=== PATIENT | male | born 1985 | race Caucasian/White ===

== ENCOUNTER 2019-12-02 11:57 | Observation (INO) | payer OTHER ==
[2019-12-02] MEDS ORDERED: ONDANSETRON 4 MG/2 ML VIAL IVP STA (12:06)
[2019-12-02] MEDS ORDERED: SODIUM CHLORIDE 0.9% 1,000 ML IV STA ×2 (12:06)
[2019-12-02] MEDS ORDERED: MORPHINE SULFATE 4 MG/ML SYRINGE IV STA (12:06)
--- NOTE | 2019-12-02 12:11 | ED ---
Abdominal Pain HPI - General Chief Complaint: Abdominal Pain Stated Complaint: stomach pains Time Seen by Provider: 12/02/19 12:02 Source: patient Mode of arrival: ambulatory Limitations: no limitations - History of Present Illness Initial Comments: 34-year-old male with no past medical history presents to emergency department today for 1 hour of significant nausea and upper abdominal pain. Patient states he has right upper quadrant epigastric abdominal pain that began an hour ago he describes as sharp in nature states his profound nausea. Patient denies any chest pressure or shortness of breath. Patient denies any back pain arm pain and jaw pain. Patient denies any vomiting states he feels like he is about 2. Patient denies any diarrhea. Patient denies any sick contacts rashes or upper respiratory symptoms. Patient denies any known fevers. Patient denies any chronic alcohol abuse, or history of pancreatitis. Patient denies any radiation of the pain or specific alleviating or aggravating factors. Patient denies lower abdominal pain melena hematochezia. Remaining review of systems negative upon arrival patient appears nontoxic. VS within acceptable limits. - Related Data Home Medications Medication Instructions Recorded Confirmed No Known Home Medications 12/02/19 12/02/19 Allergies Allergy/AdvReac Type Severity Reaction Status Date / Time No Known Allergies Allergy Verified 12/02/19 14:24 Review of Systems ROS Statement: Those systems with pertinent positive or pertinent negative responses have been documented in the HPI. ROS Other: All systems not noted in ROS Statement are negative. Past Medical History Past Medical History: No Reported History History of Any Multi-Drug Resistant Organisms: None Reported Past Surgical History: No Surgical Hx Reported Past Psychological History: No Psychological Hx Reported Smoking Status: Never smoker Past Alcohol Use History: Occasional Past Drug Use History: None Reported General Exam - General Exam Comments Initial Comments: General: The patient is awake and alert, in no distress Eye: +3 mm pupils are equal, round and reactive to light, extra-ocular movements are intact. No nystagmus. There is normal conjunctiva bilaterally. No signs of icterus. Ears, nose, mouth and throat: There are moist mucous membranes and no oral lesions. Neck: The neck is supple, there is no tenderness or JVD. Cardiovascular: There is a regular rate and rhythm. No murmur, rub or gallop is appreciated. Respiratory: Lungs are clear to auscultation, respirations are non-labored, breath sounds are equal. No wheezes, stridor, rales, or rhonchi. Gastrointestinal: Soft, non-distended, RUQ and epigastric abdomen without masses or organomegaly noted. There is no rebound or guarding present. Musculoskeletal: Normal ROM, no tenderness. Strength 5/5. Sensation intact. Radial pulses equal bilaterally 2+. Rectal: no bright red blood, external hemorrhoid nonthrombosed pink, normal rectal tone, light brown stool Neurological: A&O x 3. CN II-XII intact grossly, There are no obvious motor or sensory deficits. Coordination appears grossly intact. Speech is normal. Skin: Skin is warm and dry and no rashes or lesions are noted. Psychiatric: Cooperative, appropriate mood & affect, normal judgment. Limitations: no limitations Course Vital Signs 12/02/19 12/02/19 12/02/19 11:59 14:40 14:58 Temperature 97.5 F L 97.9 F Pulse Rate 69 72 Respiratory 20 17 18 Rate Blood Pressure 110/68 111/76 O2 Sat by Pulse 100 100 Oximetry Medical Decision Making - Medical Decision Making 33 mL presented for epigastric pain and nausea. Patient has a low hemoglobin. Concern for peptic ulcer. Patient is occult positive. History of hemorrhoids with obvious external hemorrhoid. Does not appear thrombosed. Patient has no previous hemoglobin values. No known history of anemia. Patient's symptoms were controlled in the emergency Department patient is not tachycardic. At this time given the significance of anemia, patient will be admitted for GI consultation. Patient agreeable to admission, and was given protonix and IV fluids in the ER. Case was discussed with Dr. Diaz who spoke with the admitting provider Dr Gamez who accepted both agreeable to care plan. - Lab Data Result diagrams: 12/02/19 12:15 12/02/19 12:15 Lab Results 12/02/19 12/02/19 12/02/19 Range/Units 12:15 12:15 12:15 WBC 9.6 (3.8-10.6) k/uL RBC 5.97 H (4.30-5.90) m/uL Hgb 9.5 L (13.0-17.5) gm/dL Hct 38.6 L (39.0-53.0) % MCV 64.7 L (80.0-100.0) fL MCH 15.8 L (25.0-35.0) pg MCHC 24.5 L (31.0-37.0) g/dL RDW 16.4 H (11.5-15.5) % Plt Count 375 (150-450) k/uL Neutrophils % 80 % Lymphocytes % 12 % Monocytes % 4 % Eosinophils % 2 % Basophils % 0 % Neutrophils # 7.7 (1.3-7.7) k/uL Lymphocytes # 1.2 (1.0-4.8) k/uL Monocytes # 0.4 (0-1.0) k/uL Eosinophils # 0.1 (0-0.7) k/uL Basophils # 0.0 (0-0.2) k/uL Hypochromasia Marked Anisocytosis Slight Microcytosis Marked Sodium 138 (137-145) mmol/L Potassium 4.7 (3.5-5.1) mmol/L Chloride 104 (98-107) mmol/L Carbon Dioxide 25 (22-30) mmol/L Anion Gap 9 mmol/L BUN 12 (9-20) mg/dL Creatinine 0.80 (0.66-1.25) mg/dL Est GFR (CKD-EPI)AfAm >90 (>60 ml/min/1.73 sqM) Est GFR (CKD-EPI)NonAf >90 (>60 ml/min/1.73 sqM) Glucose 137 H (74-99) mg/dL Calcium 9.3 (8.4-10.2) mg/dL Total Bilirubin 0.3 (0.2-1.3) mg/dL AST 20 (17-59) U/L ALT 10 (4-49) U/L Alkaline Phosphatase 70 (38-126) U/L Troponin I <0.012 (0.000-0.034) ng/mL Total Protein 7.8 (6.3-8.2) g/dL Albumin 4.6 (3.5-5.0) g/dL Amylase 68 (30-110) U/L Lipase 52 (23-300) U/L Urine Color Urine Appearance (Clear) Urine pH (5.0-8.0) Ur Specific [place] (1.001-1.035) Urine Protein (Negative) Urine Glucose (UA) (Negative) Urine Ketones (Negative) Urine Blood (Negative) Urine Nitrite (Negative) Urine Bilirubin (Negative) Urine Urobilinogen (<2.0) mg/dL Ur Leukocyte Esterase (Negative) Urine RBC (0-5) /hpf Urine WBC (0-5) /hpf Ur Squamous Epith Cells (0-4) /hpf Hyaline Casts (0-2) /lpf Urine Mucus (None) /hpf Stool Occult Blood (Negative) 12/02/19 12/02/19 Range/Units 13:00 13:43 WBC (3.8-10.6) k/uL RBC (4.30-5.90) m/uL Hgb (13.0-17.5) gm/dL Hct (39.0-53.0) % MCV (80.0-100.0) fL MCH (25.0-35.0) pg MCHC (31.0-37.0) g/dL RDW (11.5-15.5) % Plt Count (150-450) k/uL Neutrophils % % Lymphocytes % % Monocytes % % Eosinophils % % Basophils % % Neutrophils # (1.3-7.7) k/uL Lymphocytes # (1.0-4.8) k/uL Monocytes # (0-1.0) k/uL Eosinophils # (0-0.7) k/uL Basophils # (0-0.2) k/uL Hypochromasia Anisocytosis Microcytosis Sodium (137-145) mmol/L Potassium (3.5-5.1) mmol/L Chloride (98-107) mmol/L Carbon Dioxide (22-30) mmol/L Anion Gap mmol/L BUN (9-20) mg/dL Creatinine (0.66-1.25) mg/dL Est GFR (CKD-EPI)AfAm (>60 ml/min/1.73 sqM) Est GFR (CKD-EPI)NonAf (>60 ml/min/1.73 sqM) Glucose (74-99) mg/dL Calcium (8.4-10.2) mg/dL Total Bilirubin (0.2-1.3) mg/dL AST (17-59) U/L ALT (4-49) U/L Alkaline Phosphatase (38-126) U/L Troponin I (0.000-0.034) ng/mL Total Protein (6.3-8.2) g/dL Albumin (3.5-5.0) g/dL Amylase (30-110) U/L Lipase (23-300) U/L Urine Color Yellow Urine Appearance Clear (Clear) Urine pH 5.5 (5.0-8.0) Ur Specific [place] 1.024 (1.001-1.035) Urine Protein 1+ H (Negative) Urine Glucose (UA) Negative (Negative) Urine Ketones Negative (Negative) Urine Blood Moderate H (Negative) Urine Nitrite Negative (Negative) Urine Bilirubin Negative (Negative) Urine Urobilinogen <2.0 (<2.0) mg/dL Ur Leukocyte Esterase Trace H (Negative) Urine RBC 5 (0-5) /hpf Urine WBC 7 H (0-5) /hpf Ur Squamous Epith Cells <1 (0-4) /hpf Hyaline Casts 1 (0-2) /lpf Urine Mucus Many H (None) /hpf Stool Occult Blood Positive (Negative) - EKG Data EKG Comments: Ventricular rate 58 bpm, ID interval 132 ms, QRS ration 92 ms, QT/QTC 440/431 ms. This is mild sinus bradycardia. There is no ST elevation or depression. There is normal R-wave progression. No acute findings at this time. Disposition Clinical Impression: Anemia, Occult blood positive stool, Abdominal pain, Nausea Disposition: ADMITTED IP TO THIS HOSP Condition: Stable Is patient prescribed a controlled substance at d/c from ED?: No Time of Disposition: 14:19 Decision to Admit Reason: Admit from EC Decision Date: 12/02/19 Decision Time: 14:19
[2019-12-02 12:48] LABS: ALT 10 U/L (4-49); AST 20 U/L (17-59); African American GFR (CKD) >90 (>60 ml/min/1.73 sqM); Albumin 4.6 g/dL (3.5-5.0); Alkaline Phosphatase 70 U/L (38-126); Amylase 68 U/L (30-110); Anion Gap 9 mmol/L; Blood Urea Nitrogen 12 mg/dL (9-20); Calcium 9.3 mg/dL (8.4-10.2); Carbon Dioxide 25 mmol/L (22-30); Chloride 104 mmol/L (98-107); Glucose 137 mg/dL (74-99); Non-African American GFR(CKD) >90 (>60 ml/min/1.73 sqM); Potassium 4.7 mmol/L (3.5-5.1); Sodium 138 mmol/L (137-145); Total Bilirubin 0.3 mg/dL (0.2-1.3); Total Protein 7.8 g/dL (6.3-8.2)
[2019-12-02 12:49] LABS: Anisocytosis Slight; Basophils % (A) 0 %; Eosinophils # (A) 0.1 k/uL (0-0.7); Eosinophils % (A) 2 %; HCT 38.6 % (39.0-53.0); HGB 9.5 gm/dL (13.0-17.5); Hypochromasia Marked; Lymphocytes # (A) 1.2 k/uL (1.0-4.8); Lymphocytes % (A) 12 %; MCH 15.8 pg (25.0-35.0); MCHC 24.5 g/dL (31.0-37.0); MCV 64.7 fL (80.0-100.0); Mean Platelet Volume 7.3; Microcytosis Marked; Monocytes # (A) 0.4 k/uL (0-1.0); Monocytes % (A) 4 %; Neutrophils # (A) 7.7 k/uL (1.3-7.7); Neutrophils % (A) 80 %; Platelet Count 375 k/uL (150-450); RBC 5.97 m/uL (4.30-5.90); RDW 16.4 % (11.5-15.5); WBC 9.6 k/uL (3.8-10.6)
--- NOTE | 2019-12-02 13:18 | XR ---
EXAMINATION TYPE: XR abdomen acute w cxr DATE OF EXAM: 12/02/2019 COMPARISON: NONE HISTORY: Pain TECHNIQUE: Single view of the chest and 2 views of the abdomen are submitted. FINDINGS: Single view of the chest fails demonstrate evidence for acute pulmonary disease. There is no evidence for pneumoperitoneum. The bowel gas pattern is unremarkable as there is air throughout nondilated small and large bowel. No sizeable air fluid levels.No mass effects are seen. No unusual calcifications. IMPRESSION: 1. Unremarkable study.
[2019-12-02 13:22] LABS: Appearance,Urine Clear (Clear); Bilirubin,Urine Negative (Negative); Blood,Urine Moderate (Negative); Color,Urine Yellow; Glucose,Urine (UA) Negative (Negative); Hyaline Casts,Urine 1 /lpf (0-2); Ketones,Urine Negative (Negative); Leukocyte Esterase,Urine Trace (Negative); Mucus,Urine Many /hpf; Nitrite,Urine Negative (Negative); PH, Urine 5.5 (5.0-8.0); Protein,Urine 1+ (Negative); RBC,Urine 5 /hpf (0-5); Specific Gravity,Urine 1.024 (1.001-1.035); Squamous Epithelial Cell,Urine <1 /hpf (0-4); Urobilinogen,Urine <2.0 mg/dL (<2.0); WBC,Urine 7 /hpf (0-5)
[2019-12-02] MEDS ORDERED: PANTOPRAZOLE 40 MG/10 ML VIAL IVP STA (14:04)
[2019-12-02] MEDS ORDERED: NALOXONE 0.4 MG/ML 1 ML VIAL IV PRN (14:17)
[2019-12-02] MEDS ORDERED: MORPHINE SULFATE 4 MG/ML SYRINGE IV PRN (14:17)
[2019-12-02] MEDS ORDERED: ONDANSETRON 4 MG/2 ML VIAL IVP PRN (14:17)
[2019-12-02] MEDS: SODIUM CHLORIDE 0.9% 1,000 ML IV SCH (14:37)
[2019-12-02 14:59] VITALS: RESP 18
--- NOTE | 2019-12-02 15:36 | P.HPIM ---
History of Present Illness 34-year-old pleasant male with no history of alcohol abuse came in with complains of epigastric and right upper quadrant abdominal pain sharp in nature moderate amount of pain with profound nausea did not vomit. Patient denied any chest pain or shortness of breath. Patient is admitted for because of severe anemia although patient denied any dark stools or blood in the stools. Patient's hemoglobin is 9.5 and MCV is only 64. Patient clinically doesn't have any acute GI bleed but does have microcytic anemia, uterine deficiency or thalassemia. Patient woke up from a abdominal pain and patient's abdominal pain is not related to food patient still has his gallbladder Review of Systems REVIEW OF SYSTEMS: CONSTITUTIONAL: No fever, no malaise, no fatigue. HEENT: No recent visual problems or hearing problems. Denied any sore throat. CARDIOVASCULAR: No chest pain, orthopnea, PND, no palpitations, no syncope. PULMONARY: No shortness of breath, no cough, no hemoptysis. GASTROINTESTINAL: As mentioned in HPI NEUROLOGICAL: No headaches, no weakness, no numbness. HEMATOLOGICAL: Denies any bleeding or petechiae. GENITOURINARY: Denies any burning micturition, frequency, or urgency. MUSCULOSKELETAL/RHEUMATOLOGICAL: Denies any joint pain, swelling, or any muscle pain. ENDOCRINE: Denies any polyuria or polydipsia. The rest of the 14-point review of systems is negative. Past Medical History Past Medical History: No Reported History History of Any Multi-Drug Resistant Organisms: None Reported Past Surgical History: No Surgical Hx Reported Past Psychological History: No Psychological Hx Reported Smoking Status: Never smoker Past Alcohol Use History: Occasional Past Drug Use History: None Reported Medications and Allergies Home Medications Medication Instructions Recorded Confirmed Type No Known Home Medications 12/02/19 12/02/19 History Allergies Allergy/AdvReac Type Severity Reaction Status Date / Time No Known Allergies Allergy Verified 12/02/19 14:24 Physical Exam Vitals: Vital Signs Temp Pulse Resp BP Pulse Ox 12/02/19 14:58 18 12/02/19 14:40 97.9 F 72 17 111/76 100 12/02/19 11:59 97.5 F L 69 20 110/68 100 Intake and Output 12/02/19 12/02/19 12/02/19 06:59 14:59 22:59 Other: Weight 72.575 kg PHYSICAL EXAMINATION: GENERAL: The patient is alert and oriented x3, not in any acute distress. Well developed, well nourished. HEENT: Pupils are round and equally reacting to light. EOMI. No scleral icterus. No conjunctival pallor. Normocephalic, atraumatic. No pharyngeal erythema. No thyromegaly. CARDIOVASCULAR: S1 and S2 present. No murmurs, rubs, or gallops. PULMONARY: Chest is clear to auscultation, no wheezing or crackles. ABDOMEN: Soft, nontender, nondistended, normoactive bowel sounds. No palpable organomegaly. MUSCULOSKELETAL: No joint swelling or deformity. EXTREMITIES: No cyanosis, clubbing, or pedal edema. NEUROLOGICAL: Gross neurological examination did not reveal any focal deficits. SKIN: No rashes. Results CBC & Chem 7: 12/02/19 12:15 12/02/19 12:15 Labs: Abnormal Lab Results - Last 24 Hours (Table) 12/02/19 12/02/19 12/02/19 Range/Units 12:15 12:15 13:00 RBC 5.97 H (4.30-5.90) m/uL Hgb 9.5 L (13.0-17.5) gm/dL Hct 38.6 L (39.0-53.0) % MCV 64.7 L (80.0-100.0) fL MCH 15.8 L (25.0-35.0) pg MCHC 24.5 L (31.0-37.0) g/dL RDW 16.4 H (11.5-15.5) % Glucose 137 H (74-99) mg/dL Urine Protein 1+ H (Negative) Urine Blood Moderate H (Negative) Ur Leukocyte Esterase Trace H (Negative) Urine WBC 7 H (0-5) /hpf Urine Mucus Many H (None) /hpf Assessment and Plan Plan: -Epigastric abdominal pain nausea vomiting: Secondary to peptic ulcer disease patient will be started on Protonix continue with IV fluids -rule out gallbladder disease although clinical suspicion is low Galeano's sign is negative. -Severe microcytic anemia patient MCVs as low as 64 although I do not believe patient has acute GI bleed aren't acutely acute blood loss anemia patient does have iron deficiency can be from nutritional deficiency of iron I'll do an iron panel are thalassemia the possibility of thalassemia is low. Hemoglobin electrophoresis was ordered as well.
--- NOTE | 2019-12-02 16:21 | US ---
EXAMINATION TYPE: US gallbladder DATE OF EXAM: 12/02/2019 COMPARISON: NONE CLINICAL HISTORY: elevated liver enzymes. Elevated LFT's, pt states right side ABD pain EXAM MEASUREMENTS: Liver Length: 16.2 cm Gallbladder Wall: 0.2 cm CBD: 0.3 cm Right Kidney: 11.3 x 4.5 x 5.1 cm Pancreas: wnl, tail obscured by overlying bowel gas Liver: wnl Gallbladder: wnl Evidence for sonographic Galeano's sign: No CBD: wnl Right Kidney: wnl IMPRESSION: No distinct abnormality appreciated.
[2019-12-02 23:29] LABS: % Iron Saturation 1.41 (15.00-50.00)
[2019-12-03] MEDS: SODIUM CHLORIDE 0.9% 1,000 ML IV SCH (04:11)
[2019-12-03] MEDS ORDERED: PANTOPRAZOLE 40 MG/10 ML VIAL IV SCH (09:00)
[2019-12-03 09:10] LABS: African American GFR (CKD) >90 (>60 ml/min/1.73 sqM); Anion Gap 4 mmol/L; Blood Urea Nitrogen 12 mg/dL (9-20); Calcium 8.7 mg/dL (8.4-10.2); Carbon Dioxide 27 mmol/L (22-30); Chloride 106 mmol/L (98-107); Glucose 91 mg/dL (74-99); Non-African American GFR(CKD) >90 (>60 ml/min/1.73 sqM); Potassium 4.7 mmol/L (3.5-5.1); Sodium 137 mmol/L (137-145)
[2019-12-03 10:12] LABS: Anisocytosis Slight; Basophils % (A) 1 %; Eosinophils # (A) 0.2 k/uL (0-0.7); Eosinophils % (A) 3 %; HCT 33.1 % (39.0-53.0); HGB 8.1 gm/dL (13.0-17.5); Hypochromasia Marked; Lymphocytes # (A) 1.8 k/uL (1.0-4.8); Lymphocytes % (A) 29 %; MCH 16.1 pg (25.0-35.0); MCHC 24.5 g/dL (31.0-37.0); MCV 65.9 fL (80.0-100.0); Mean Platelet Volume 9.7; Microcytosis Marked; Monocytes # (A) 0.5 k/uL (0-1.0); Monocytes % (A) 8 %; Neutrophils # (A) 3.6 k/uL (1.3-7.7); Neutrophils % (A) 57 %; Platelet Count 312 k/uL (150-450); RBC 5.02 m/uL (4.30-5.90); RDW 16.3 % (11.5-15.5); WBC 6.3 k/uL (3.8-10.6)
[2019-12-03 10:21] LABS: Reticulocyte % 0.84 % (0.10-1.80)
[2019-12-03 10:44] LABS: Folate, Serum 9.4 ng/mL
[2019-12-03 10:50] LABS: Ferritin 1.7 ng/mL (22.0-322.0)
[2019-12-03] MEDS ORDERED: SODIUM FERRIC GLUCONAT-SUCROSE 125 MG in SODIUM CHLORIDE 0.9% 100 ML IVPB SCH (11:00)
[2019-12-03 11:30] VITALS: BP 99/64; PULSE 68; TEMP 98.2
--- NOTE | 2019-12-03 13:44 | P.DS ---
Providers Date of admission: 12/02/19 14:14 Expected date of discharge: 12/03/19 Attending physician: Osiel Cummins Consults: 12/02/19 14:20 Consult Physician Routine Consulting Provider: Domo Tee Consult Reason/Comments: Anemia, epigastric pain, occult positive Do you want consulting provider notified?: Yes, Notify in am [facility] Course: Final diagnosis -Epigastric abdominal pain nausea vomiting: Secondary to peptic ulcer disease -ruled out gallbladder disease -Severe microcytic anemia -Iron deficiency anemia with no thalassemia and no evidence of GI bleed Discharge disposition Patient is being discharged in a stable condition with guarded prognosis to home and patient will follow-up with Dr. Delacruz in the outpatient setting. Patient will need to follow-up outpatient with hematology as well as GI. Patient will continue with Protonix and iron supplementation in the outpatient setting. Total time taken is 35 minutes. History of present illness This is a 34-year-old male who was recently admitted with epigastric and right upper quadrant abdominal pain with profound nausea and was being closely monitored. There was a possibility of GI bleed as the occult was positive although there is no active bleeding noted. Patient's hemoglobin today is 8.1 with no reports of bleeding noted. Patient was seen and evaluated by GI recommending Protonix daily and iron supplementation as his iron ferritin is low at 1.7. Patient will need repeat labs to monitor hemoglobin and will be following up with hematology in the outpatient setting. Currently no reports of chest pain, shortness of breath, or palpitations. Patient is afebrile. No reports of nausea or vomiting and patient is tolerating diet. Patient will be discharged home today and will follow-up with GI and hematology along with his primary care provider in the outpatient setting. Patient Instructed to avoid all alcohol intake. On exam vital signs are stable. Temp is 98.2F, pulse is 68, respirations are 18, blood pressure is 99/64, oxygen saturation is 100 % on room air. Cardio S1, S2 are present. Respiratory system shows clear to auscultation. Abdomen is soft and nontender. Nervous system shows no focal deficits. Please refer to medication reconciliation sheet for a list of medications. Patient Condition at Discharge: Stable Plan - Discharge Summary Discharge Rx Participant: No New Discharge Prescriptions: New Pantoprazole Sodium [Protonix] 40 mg PO AC-BRKFST #30 tablet. Ferrous Gluconate 324 mg PO DAILY 30 Days #30 tablet Discharge Medication List Ferrous Gluconate 324 mg PO DAILY 30 Days #30 tablet 12/03/19 [Rx] Pantoprazole Sodium [Protonix] 40 mg PO AC-BRKFST #30 tablet. 12/03/19 [Rx] Follow up Appointment(s)/Referral(s): Bob Tobar MD [STAFF PHYSICIAN] - 2 Weeks Jillian Delacruz MD [Primary Care Provider] - 1-2 days Domo Tee MD [STAFF PHYSICIAN] - 4 Weeks Ambulatory/Diagnostic Orders: Complete Blood Count w/diff [LAB.AMB] Time Frame: 2 Days, Location: None Selected Activity/Diet/Wound Care/Special Instructions: Activity Limited until follow-up Follow-up with primary care provider upon discharge Continue current diet Continue with iron supplements Follow-up GI in the outpatient setting Follow-up with hematology in the outpatient setting Repeat labs in 2-3 days Discharge Disposition: HOME SELF-CARE
--- NOTE | 2019-12-03 23:18 | P.CONS ---
History of Present Illness - Reason for Consult Consult date: 12/03/19 Iron deficiency anemia, abdominal pain Requesting physician: Shelley Frank - Chief Complaint Abdominal pain - History of Present Illness 34-year-old male with no significant medical history of presents to the hospital with abdominal pain. Patient reports right upper quadrant abdominal pain described as sharp in nature without radiation. Denies any exacerbating tri ggers but does report relief with pain medications after coming to the hospital. He did have associated nausea and vomiting but denies any diarrhea. He denies any constipation, altered bowel function, blood per rectum, melena at this time. No GERD, or regurgitation reported. He denies any significant NSAID use. Denies any history of anemia or other signs or symptoms of bleeding. No prior endoscopic history. Patient had ultrasound and x-ray of the abdomen on presentation which were unremarkable. Laboratory evaluation was significant for microcytic anemia with hemoglobin of 9.5, EGD 64, MCHC 15.8, WBC 9.6, platelet count irregular 75,000 with iron studies significant for iron deficiency. No prior history of anemia for the patient. Review of Systems REVIEW OF SYSTEMS: CONSTITUTIONAL: Denies any fevers, chills, weight change or fatigue. CARDIOVASCULAR: Denies any chest pain, palpitations high or low blood pressures RESPIRATORY: Denies any shortness of breath, hemoptysis or cough. GENITOURINARY: No dysuria or hematuria. MUSCULOSKELETAL: No weakness reported. SKIN: Denies any new rashes or lesions, jaundice or pallor. PSYCHIATRIC: Denies any depression or anxiety. NEUROLOGY: Denies headache, denies any new focal deficits. EARS/NOSE/THROAT: No recent hearing change, congestion, nasal discharge or sore throat. EYES: No pain in eyes, discharge or change in vision. GASTROINTESTINAL: As per HPI. Past Medical History Past Medical History: No Reported History History of Any Multi-Drug Resistant Organisms: None Reported Past Surgical History: No Surgical Hx Reported Past Anesthesia/Blood Transfusion Reactions: Unable to Obtain Additional Past Anesthesia/Blood Transfusion Reaction / Comm: Pt has never had anesthesia Smoking Status: Former smoker - Past Family History Father Family Medical History: Diabetes Mellitus Mother Family Medical History: No Reported History Additional Family Medical History / Comment(s): Mother is healthy Medications and Allergies Home Medications Medication Instructions Recorded Confirmed Type Ferrous Gluconate 324 mg PO DAILY 30 Days #30 tablet 12/03/19 Rx Pantoprazole Sodium [Protonix] 40 mg PO TOBYBRKFST #30 tablet. 12/03/19 Rx Allergies Allergy/AdvReac Type Severity Reaction Status Date / Time No Known Allergies Allergy Verified 12/02/19 14:24 Physical Exam Vitals: Vital Signs Temp Pulse Pulse Resp BP BP Pulse Ox 12/03/19 07:39 69 18 12/03/19 05:00 97.9 F 69 18 98/63 98 12/02/19 20:24 97.7 F 79 18 92/52 99 12/02/19 16:41 98.3 F 69 18 112/69 100 12/02/19 14:58 18 12/02/19 14:40 97.9 F 72 17 111/76 100 12/02/19 11:59 97.5 F L 69 20 110/68 100 Intake and Output 12/02/19 12/03/19 12/03/19 22:59 06:59 14:59 Intake Total 120 900 Balance 120 900 Intake: Intake, IV Titration 900 Amount Sodium Chloride 0.9% 1, 900 000 ml @ 75 mls/hr IV . [id number] [facility] Rx#:[id number] Oral 120 Other: Voiding Method Toilet Toilet # Voids 1 1 1 Weight 72.575 kg On physical examination, patient appears comfortable in no apparent distress. HEAD: Normocephalic, atraumatic. EYES: No scleral icterus. No conjunctival injection. MOUTH: No lesions, tongue midline. NECK: Trachea midline, no gross abnormalities. CHEST: Clear to auscultation with no wheezing or rhonchi appreciated. HEART: Regular rate and rhythm. ABDOMEN: Soft, obese. Bowel sounds are positive. No organomegaly. No guarding or rigidity. EXTREMITIES: No pedal edema. SKIN: No rashes, no jaundice. NEUROLOGIC: Alert and oriented x3. No focal deficits. Results CBC & Chem 7: 12/03/19 07:24 12/03/19 07:24 Labs: Abnormal Lab Results - Last 24 Hours (Table) 12/02/19 12/02/19 12/02/19 Range/Units 12:15 12:15 12:15 RBC 5.97 H (4.30-5.90) m/uL Hgb 9.5 L (13.0-17.5) gm/dL Hct 38.6 L (39.0-53.0) % MCV 64.7 L (80.0-100.0) fL MCH 15.8 L (25.0-35.0) pg MCHC 24.5 L (31.0-37.0) g/dL RDW 16.4 H (11.5-15.5) % Hemoglobin A1 (96.5-97.8) % Hemoglobin A2 (2.2-3.2) % Glucose 137 H (74-99) mg/dL Iron 7 L (65-175) ug/dL TIBC 497 H (228-460) ug/dL % Saturation 1.41 L (15.00-50.00) Urine Protein (Negative) Urine Blood (Negative) Ur Leukocyte Esterase (Negative) Urine WBC (0-5) /hpf Urine Mucus (None) /hpf 12/02/19 12/02/19 12/03/19 Range/Units 12:15 13:00 07:24 RBC (4.30-5.90) m/uL Hgb 8.1 L (13.0-17.5) gm/dL Hct 33.1 L (39.0-53.0) % MCV 65.9 L (80.0-100.0) fL MCH 16.1 L (25.0-35.0) pg MCHC 24.5 L (31.0-37.0) g/dL RDW 16.3 H (11.5-15.5) % Hemoglobin A1 98.3 H (96.5-97.8) % Hemoglobin A2 1.7 L (2.2-3.2) % Glucose (74-99) mg/dL Iron (65-175) ug/dL TIBC (228-460) ug/dL % Saturation (15.00-50.00) Urine Protein 1+ H (Negative) Urine Blood Moderate H (Negative) Ur Leukocyte Esterase Trace H (Negative) Urine WBC 7 H (0-5) /hpf Urine Mucus Many H (None) /hpf US - abdomen: report reviewed (Unremarkable ultrasound of the liver) Assessment and Plan (1) Iron deficiency anemia Narrative/Plan: 34-year-old male with no significant medical history found to have an iron deficiency anemia with of 9.5 on presentation with microcytic indices and with iron studies consistent with deficiency. Unclear etiology. Denies any signs or symptoms of bleeding. No prior history of anemia. No endoscopic history. No change in bowels, hematochezia or melena. Unclear if bleeding is secondary to occult GI bleed, nutritional deficiencies, hematopoietic or other etiology. Status: Acute Code(s): D50.9 - IRON DEFICIENCY ANEMIA, UNSPECIFIED SNOMED Code(s): 57952049 (2) Abdominal pain Status: Acute Code(s): R10.9 - UNSPECIFIED ABDOMINAL PAIN SNOMED Code(s): 93630011 Plan: Supportive care Okay for diet Protonix 40 mg daily Iron supplementation Patient should continue to have hemoglobin monitored in the outpatient setting, if he remains anemic would recommend at this evaluation for further elucidation of possible etiology and to rule out GI bleed No plans for endoscopic evaluation at this time Follow-up with yesterday serology in 3-4 weeks for reassessment of hemoglobin Follow-up with primary care physician after discharge Thank you for allowing us to participate in the care of the patient
== END 2019-12-03 15:12 | disposition home or self-care (01) ==
LOC: EC 11:57 → 5NMEDONC 14:14
PROVIDERS: ADMIT Internal Medicine; ATTEND Internal Medicine
DX: K27.9 Peptic ulcer, site unspecified, unspecified as acute or chronic, without hemorrhage or perforation (principal); D50.9 Iron deficiency anemia, unspecified; R19.5 Other fecal abnormalities; K64.4 Residual hemorrhoidal skin tags; Z87.891 Personal history of nicotine dependence
CPT/HCPCS: 96376; 96361; 96374; 96375; 99285; 36415; 93005; 80053; 80048; 82607; 82728; 82150; 82746; 83021; 83540; 83550; 83690; 84484; 85025 ×2; 85045; 82272; 81001; 74022; 76705; G0378 ×2; J2270; J2405; C9113 ×2

== ENCOUNTER 2022-08-15 18:20 | Inpatient (IN) | payer OTHER ==
[2022-08-15] MEDS ORDERED: PANTOPRAZOLE 40 MG/10 ML VIAL IVP STA (18:38)
[2022-08-15] MEDS ORDERED: SODIUM CHLORIDE 0.9% 1,000 ML IV STA (18:38)
[2022-08-15 19:19] LABS: ALT 14 U/L (4-49); AST 22 U/L (17-59); African American GFR (CKD) >90 (>60 ml/min/1.73 sqM); Albumin 5.2 g/dL (3.5-5.0); Alkaline Phosphatase 85 U/L (38-126); Anion Gap 11 mmol/L; Blood Urea Nitrogen 13 mg/dL (9-20); Calcium 9.7 mg/dL (8.4-10.2); Carbon Dioxide 25 mmol/L (22-30); Chloride 102 mmol/L (98-107); Glucose 128 mg/dL (74-99); Lipase 84 U/L (23-300); Non-African American GFR(CKD) 86 (>60 ml/min/1.73 sqM); Sodium 138 mmol/L (137-145); Total Bilirubin 0.4 mg/dL (0.2-1.3); Total Protein 8.2 g/dL (6.3-8.2)
[2022-08-15 19:24] LABS: Anisocytosis Slight; Basophils # (A) 0.1 k/uL (0-0.2); Basophils % (A) 1 %; Eosinophils # (A) 0.1 k/uL (0-0.7); Eosinophils % (A) 1 %; HCT 37.8 % (39.0-53.0); HGB 9.7 gm/dL (13.0-17.5); Hypochromasia Marked; Lymphocytes # (A) 1.9 k/uL (1.0-4.8); Lymphocytes % (A) 17 %; MCH 16.9 pg (25.0-35.0); MCHC 25.7 g/dL (31.0-37.0); MCV 65.5 fL (80.0-100.0); Microcytosis Marked; Monocytes # (A) 0.7 k/uL (0-1.0); Monocytes % (A) 6 %; Neutrophils # (A) 8.4 k/uL (1.3-7.7); Neutrophils % (A) 74 %; Platelet Count 380 k/uL (150-450); RBC 5.78 m/uL (4.30-5.90); RDW 16.2 % (11.5-15.5); WBC 11.4 k/uL (3.8-10.6)
[2022-08-15 19:46] LABS: Partial Thromboplastin Time 20.5 sec (22.0-30.0); Prothrombin Time 10.7 sec (9.0-12.0)
--- NOTE | 2022-08-15 20:26 | ED ---
General Adult HPI - General Chief complaint: Syncope Stated complaint: Weakness,Syncope Time Seen by Provider: 08/15/22 18:27 Source: patient Mode of arrival: wheelchair Limitations: no limitations - History of Present Illness Initial comments: 37-year-old male with past medical history of anemia who presents to the emergency department with presyncope. He reports that he has felt fatigued over the past couple of days. He took an iron tablet this morning due to the fatigue. He was at home when he had sudden onset of right upper quadrant abdominal pain. This made him double over. He felt like he was passed out. [place] extremely diaphoretic and nauseated. His father drove him up to the emergency department where he was found to be significantly hypotensive. He states he has had some bright red blood per rectum due to his hemorrhoid. Denie s any dark or bloody stools. Does not take any blood thinners. His pain or shortness of breath. No family history of cardiac disease. Supposed to take iron daily however has not taken the medication was. He was hospitalized 2 years ago for anemia which was attributed to iron deficiency and peptic ulcer. He states he was drinking significantly at that time and has subsequently cut down to once per week. He did not have endoscopy and has not followed up. No fevers. Denies cough. No other alleviating, precipitating or modifying factors - Related Data Home Medications Medication Instructions Recorded Confirmed No Known Home Medications 08/15/22 08/15/22 Allergies Allergy/AdvReac Type Severity Reaction Status Date / Time No Known Allergies Allergy Verified 08/15/22 20:42 Review of Systems ROS Statement: Those systems with pertinent positive or pertinent negative responses have been documented in the HPI. ROS Other: All systems not noted in ROS Statement are negative. Past Medical History Past Medical History: No Reported History History of Any Multi-Drug Resistant Organisms: None Reported Past Surgical History: No Surgical Hx Reported Past Anesthesia/Blood Transfusion Reactions: Unable to Obtain Additional Past Anesthesia/Blood Transfusion Reaction / Comment(s): Pt has never had anesthesia Past Psychological History: No Psychological Hx Reported Past Alcohol Use History: Occasional Past Drug Use History: None Reported - Past Family History Father Family Medical History: Diabetes Mellitus Mother Family Medical History: No Reported History Additional Family Medical History / Comment(s): Mother is healthy General Exam Limitations: no limitations Course Vital Signs 08/15/22 08/15/22 18:23 22:05 Temperature 97 F L Pulse Rate 102 H 92 Respiratory 16 15 Rate Blood Pressure 75/46 104/73 O2 Sat by Pulse 100 100 Oximetry EKG Findings - EKG Comments: EKG Findings:: EKG interpreted by myself demonstrates a sinus rhythm with a rate of 90. MT of 140. QRS 90. QTC 398. No acute ST segment elevations or depressions Procedures - [place] Protocol (Time Out) Nurse: Orville Villa Medical Decision Making - Medical Decision Making Upon arrival the patient was promptly placed in a trauma 1. A thorough history and physical exam was performed. Patient is markedly hypotensive. Two 18-gauge IVs are established and the patient is given a 2 L bolus of normal saline. I will try studies are conducted. Hemoglobin is 9.7. Lactic 2.3. Lipase 84. I did perform a rectal exam which demonstrates a external hemorrhoid with no signs of bleeding. I did obtain a small amount of stool which is placed on an occult and is negative. EKG is obtained. Patient sent for CT of his abdomen and pelvis which does not demonstrate cause for abdominal pain. Patient reevaluated and blood pressure has improved. Results are discussed with the patient. Did recommend observation overnight for his anemia and presyncope. Spoke with Dr. Goss who is agreeable to admit the patient - Lab Data Result diagrams: 08/15/22 18:51 08/15/22 18:51 Lab Results 08/15/22 08/15/22 08/15/22 Range/Units 18:30 18:35 18:51 WBC 11.4 H (3.8-10.6) k/uL RBC 5.78 (4.30-5.90) m/uL Hgb 9.7 L (13.0-17.5) gm/dL Hct 37.8 L (39.0-53.0) % MCV 65.5 L (80.0-100.0) fL MCH 16.9 L (25.0-35.0) pg MCHC 25.7 L (31.0-37.0) g/dL RDW 16.2 H (11.5-15.5) % Plt Count 380 (150-450) k/uL MPV 8.0 Neutrophils % 74 % Lymphocytes % 17 % Monocytes % 6 % Eosinophils % 1 % Basophils % 1 % Neutrophils # 8.4 H (1.3-7.7) k/uL Lymphocytes # 1.9 (1.0-4.8) k/uL Monocytes # 0.7 (0-1.0) k/uL Eosinophils # 0.1 (0-0.7) k/uL Basophils # 0.1 (0-0.2) k/uL Hypochromasia Marked Anisocytosis Slight Microcytosis Marked PT (9.0-12.0) sec INR (<1.2) APTT (22.0-30.0) sec Sodium (137-145) mmol/L Potassium (3.5-5.1) mmol/L Chloride (98-107) mmol/L Carbon Dioxide (22-30) mmol/L Anion Gap mmol/L BUN (9-20) mg/dL Creatinine (0.66-1.25) mg/dL Est GFR (CKD-EPI)AfAm (>60 ml/min/1.73 sqM) Est GFR (CKD-EPI)NonAf (>60 ml/min/1.73 sqM) Glucose (74-99) mg/dL Lactic Ac Sepsis Rflx Plasma Lactic Acid Elías (0.7-2.0) mmol/L Calcium (8.4-10.2) mg/dL Magnesium (1.6-2.3) mg/dL Total Bilirubin (0.2-1.3) mg/dL AST (17-59) U/L ALT (4-49) U/L Alkaline Phosphatase (38-126) U/L Troponin I (0.000-0.034) ng/mL Total Protein (6.3-8.2) g/dL Albumin (3.5-5.0) g/dL Lipase (23-300) U/L Stool Occult Blood (Negative) Blood Type O Positive Blood Type Confirm O Positive Blood Type Recheck No Previous Record Bld Type Recheck Status CABO Indicated Antibody Screen NEGATIVE Spec Expiration Date 08/18/2022 - 232908/15/22 08/15/22 08/15/22 Range/Units 18:51 18:51 18:51 WBC (3.8-10.6) k/uL RBC (4.30-5.90) m/uL Hgb (13.0-17.5) gm/dL Hct (39.0-53.0) % MCV (80.0-100.0) fL MCH (25.0-35.0) pg MCHC (31.0-37.0) g/dL RDW (11.5-15.5) % Plt Count (150-450) k/uL MPV Neutrophils % % Lymphocytes % % Monocytes % % Eosinophils % % Basophils % % Neutrophils # (1.3-7.7) k/uL Lymphocytes # (1.0-4.8) k/uL Monocytes # (0-1.0) k/uL Eosinophils # (0-0.7) k/uL Basophils # (0-0.2) k/uL Hypochromasia Anisocytosis Microcytosis PT 10.7 (9.0-12.0) sec INR 1.0 (<1.2) APTT 20.5 L (22.0-30.0) sec Sodium 138 (137-145) mmol/L Potassium 4.0 (3.5-5.1) mmol/L Chloride 102 (98-107) mmol/L Carbon Dioxide 25 (22-30) mmol/L Anion Gap 11 mmol/L BUN 13 (9-20) mg/dL Creatinine 1.10 (0.66-1.25) mg/dL Est GFR (CKD-EPI)AfAm >90 (>60 ml/min/1.73 sqM) Est GFR (CKD-EPI)NonAf 86 (>60 ml/min/1.73 sqM) Glucose 128 H (74-99) mg/dL Lactic Ac Sepsis Rflx Plasma Lactic Acid Elías 2.3 H* (0.7-2.0) mmol/L Calcium 9.7 (8.4-10.2) mg/dL Magnesium 2.0 (1.6-2.3) mg/dL Total Bilirubin 0.4 (0.2-1.3) mg/dL AST 22 (17-59) U/L ALT 14 (4-49) U/L Alkaline Phosphatase 85 (38-126) U/L Troponin I (0.000-0.034) ng/mL Total Protein 8.2 (6.3-8.2) g/dL Albumin 5.2 H (3.5-5.0) g/dL Lipase 84 (23-300) U/L Stool Occult Blood (Negative) Blood Type Blood Type Confirm Blood Type Recheck Bld Type Recheck Status Antibody Screen Spec Expiration Date 08/15/22 08/15/22 08/15/22 Range/Units 18:51 19:13 21:00 WBC (3.8-10.6) k/uL RBC (4.30-5.90) m/uL Hgb (13.0-17.5) gm/dL Hct (39.0-53.0) % MCV (80.0-100.0) fL MCH (25.0-35.0) pg MCHC (31.0-37.0) g/dL RDW (11.5-15.5) % Plt Count (150-450) k/uL MPV Neutrophils % % Lymphocytes % % Monocytes % % Eosinophils % % Basophils % % Neutrophils # (1.3-7.7) k/uL Lymphocytes # (1.0-4.8) k/uL Monocytes # (0-1.0) k/uL Eosinophils # (0-0.7) k/uL Basophils # (0-0.2) k/uL Hypochromasia Anisocytosis Microcytosis PT (9.0-12.0) sec INR (<1.2) APTT (22.0-30.0) sec Sodium (137-145) mmol/L Potassium (3.5-5.1) mmol/L Chloride (98-107) mmol/L Carbon Dioxide (22-30) mmol/L Anion Gap mmol/L BUN (9-20) mg/dL Creatinine (0.66-1.25) mg/dL Est GFR (CKD-EPI)AfAm (>60 ml/min/1.73 sqM) Est GFR (CKD-EPI)NonAf (>60 ml/min/1.73 sqM) Glucose (74-99) mg/dL Lactic Ac Sepsis Rflx Y Plasma Lactic Acid Elías (0.7-2.0) mmol/L Calcium (8.4-10.2) mg/dL Magnesium (1.6-2.3) mg/dL Total Bilirubin (0.2-1.3) mg/dL AST (17-59) U/L ALT (4-49) U/L Alkaline Phosphatase (38-126) U/L Troponin I <0.012 (0.000-0.034) ng/mL Total Protein (6.3-8.2) g/dL Albumin (3.5-5.0) g/dL Lipase (23-300) U/L Stool Occult Blood Negative (Negative) Blood Type Blood Type Confirm Blood Type Recheck Bld Type Recheck Status Antibody Screen Spec Expiration Date Disposition Clinical Impression: Anemia, Pre-syncope Disposition: ADMITTED IP TO THIS [facility] Condition: Stable Is patient prescribed a controlled substance at d/c from ED?: No Time of Disposition: 21:47 Decision to Admit Reason: Admit from EC Decision Date: 08/15/22 Decision Time: 21:47
--- NOTE | 2022-08-15 20:49 | CT ---
EXAMINATION TYPE: CT abdomen pelvis w con DATE OF EXAM: 08/15/2022 COMPARISON: None HISTORY: abominal pain and weakness CT DLP: 720.8 mGycm Automated exposure control for dose reduction was used. CONTRAST: Performed with IV Contrast, patient injected with 100 mL of Isovue 300. The lung bases are clear. No pleural effusion. Heart size is normal. Liver spleen stomach pancreas an d gallbladder appear intact. The bile ducts are not dilated. There is no adrenal mass. Kidneys show satisfactory contrast opacification. There is no hydronephrosi s. There is 1 cm focal cyst posterior right kidney. No retroperitoneal adenopathy. Appendix is partia lly seen and appears normal. Ureters are not dilated. Bladder distends smoothly. No inguinal hernia. There is mild prostate calcification. No free fluid in the pelvis. No pelvic mass. There is no mesenteric edema. No ascites or free air. No sign of a bowel obstruction. The lumbar vert ebra appear intact. No compression fracture. Bony pelvis is intact. The hip joints are intact. IMPRESSION: Negative CT scan abdomen and pelvis. I do not see a cause for abdominal pain.
[2022-08-15] MEDS ORDERED: NALOXONE 0.4 MG/ML 1 ML VIAL IV PRN (21:47)
[2022-08-16] MEDS: SODIUM CHLORIDE 0.9% 1,000 ML IV SCH ×4 (00:26→20:56)
--- NOTE | 2022-08-16 01:56 | P.HPIM ---
History of Present Illness H&P Date: 08/15/22 The patient is a 37-year-old male with a PMH of microcytic anemia and hemorrhoids who presented to the emergency room with complaints of near syncope. The patient reports that over the past 3-4 days, he has been experiencing gradually worsening fatigue. He also reports noticing bright red blood in the toilet bowl with each defecation. He reports that this is worse than the usual bleeding from his hemorrhoids. He reports that due to the worsening fatigue he decided to take a previously prescribed iron tablet this morning and was going about his day when he suddenly developed epigastric and right upper quadrant abdominal discomfort, 8 out of 10 associated with lightheadedness, nausea, and diaphoresis. He reports that the abdominal pain gradually subsided and had not recurred in the emergency room. He reports drinking alcohol for 1 day per week, multiple drinks, although he does not consider himself a heavy drinker. Of note, the patient was previously admitted to the hospital in 11/2019 for complaints of GI bleeding. At that time, the patient did not undergo an EGD, with the bleeding attributed to suspected peptic ulcer disease and patient being advised to follow-up as an outpatient, which the patient failed to do so. The patient denied experiencing chest discomfort, shortness of breath, palpitations. Upon arrival at the emergency room, the patient's patient was hypertensive with BP 75/46, pulse 102, SpO2 100% on room air, and temperature 97F. A CT abdomen and pelvis was unremarkable with EKG showing sinus rhythm at [address]/T-wave changes noted as reviewed by me. Laboratory evaluation was remarkable for hemoglobin of 9.7, up from 8.1 in 11/2019. MCV was 65.5 with lactic acid 2.3. Of note, the patient did undergo hemoglobin electrophoresis during the visit in 2019 which revealed 98.3% hemoglobin A1. Anemia pannel revealed severe iron deficiency with Ferritin 1.7. Review of systems: Pertinent positives and negatives as discussed in HPI, a complete review of systems was performed and all other systems are negative. Physical examination: General: non toxic, no distress, appears at stated age, normal weight Derm: no unusual rashes/lesions, warm Head: atraumatic, normocephalic, symmetric Eyes: EOMI, no lid lag, anicteric sclera, pupils equal round reactive to light ENT: Nose and ears atraumatic Neck: No cervical lymphadenopathy, trachea midline, supple Mouth: no lip lesion, mucus membranes moist Cardiovascular: S1S2 reg, no murmur, positive dorsalis pedis pulse bilateral, no edema Lungs: CTA bilateral, no rhonchi, no rales, no accessory muscle use Abdominal: soft, nontender to palpation, no guarding Ext: muscle strength 5 out of 5 in all 4 extremities grossly, no gross muscle atrophy, no contractures, Neuro: CN II-XI grossly intact, no gross focal neuro deficits Psych: Alert, oriented, appropriate affect Assessment/plan Near syncope with microcytic anemia and hypotension -Suspicious for likely GI bleed -Fecal occult however in the emergency room unremarkable -General surgery consult for possible EGD/colonoscopy -Continue with Protonix -Monitor CBC -IV fluids -Cardiac monitoring -Fall precautions DVT prophylaxis -IPCDs The patient is admitted with an anticipated less than 2 midnight stay for evaluation of microcytic anemia CODE STATUS: Full Code Discussed with: Patient Anticipated discharge date: [] Anticipated discharge place: Home Past Medical History Past Medical History: No Reported History History of Any Multi-Drug Resistant Organisms: None Reported Past Surgical History: No Surgical Hx Reported Past Anesthesia/Blood Transfusion Reactions: Unable to Obtain Additional Past Anesthesia/Blood Transfusion Reaction / Comment(s): Pt has never had anesthesia Past Psychological History: No Psychological Hx Reported Past Alcohol Use History: Occasional Past Drug Use History: None Reported - Past Family History Father Family Medical History: Diabetes Mellitus Mother Family Medical History: No Reported History Additional Family Medical History / Comment(s): Mother is healthy Medications and Allergies Home Medications Medication Instructions Recorded Confirmed Type No Known Home Medications 08/15/22 08/15/22 History Allergies Allergy/AdvReac Type Severity Reaction Status Date / Time No Known Allergies Allergy Verified 08/15/22 20:42 Physical Exam Vitals: Vital Signs Temp Pulse Resp BP Pulse Ox 08/15/22 22:05 92 15 104/73 100 08/15/22 18:23 97 F L 102 H 16 75/46 100 Intake and Output 08/15/22 08/15/22 08/16/22 14:59 22:59 06:59 Other: Weight 72.575 kg Results CBC & Chem 7: 08/15/22 18:51 08/15/22 18:51 Labs: Abnormal Lab Results - Last 24 Hours (Table) 08/15/22 08/15/22 08/15/22 Range/Units 18:51 18:51 18:51 WBC 11.4 H (3.8-10.6) k/uL Hgb 9.7 L (13.0-17.5) gm/dL Hct 37.8 L (39.0-53.0) % MCV 65.5 L (80.0-100.0) fL MCH 16.9 L (25.0-35.0) pg MCHC 25.7 L (31.0-37.0) g/dL RDW 16.2 H (11.5-15.5) % Neutrophils # 8.4 H (1.3-7.7) k/uL APTT 20.5 L (22.0-30.0) sec Glucose 128 H (74-99) mg/dL Plasma Lactic Acid Leías (0.7-2.0) mmol/L Albumin 5.2 H (3.5-5.0) g/dL 08/15/22 Range/Units 18:51 WBC (3.8-10.6) k/uL Hgb (13.0-17.5) gm/dL Hct (39.0-53.0) % MCV (80.0-100.0) fL MCH (25.0-35.0) pg MCHC (31.0-37.0) g/dL RDW (11.5-15.5) % Neutrophils # (1.3-7.7) k/uL APTT (22.0-30.0) sec Glucose (74-99) mg/dL Plasma Lactic Acid Elías 2.3 H* (0.7-2.0) mmol/L Albumin (3.5-5.0) g/dL
[2022-08-16 06:53] LABS: ALT 11 U/L (4-49); AST 20 U/L (17-59); African American GFR (CKD) >90 (>60 ml/min/1.73 sqM); Alkaline Phosphatase 65 U/L (38-126); Anion Gap 7 mmol/L; Blood Urea Nitrogen 9 mg/dL (9-20); Calcium 8.6 mg/dL (8.4-10.2); Carbon Dioxide 26 mmol/L (22-30); Chloride 106 mmol/L (98-107); Glucose 100 mg/dL (74-99); Non-African American GFR(CKD) >90 (>60 ml/min/1.73 sqM); Potassium 4.1 mmol/L (3.5-5.1); Sodium 139 mmol/L (137-145); Total Bilirubin 0.2 mg/dL (0.2-1.3); Total Protein 6.4 g/dL (6.3-8.2)
[2022-08-16 09:00] LABS: Anisocytosis Slight; Basophils # (A) 0.1 k/uL (0-0.2); Basophils % (A) 1 %; Eosinophils # (A) 0.2 k/uL (0-0.7); Eosinophils % (A) 2 %; HCT 31.4 % (39.0-53.0); Hypochromasia Marked; Lymphocytes # (A) 1.6 k/uL (1.0-4.8); Lymphocytes % (A) 20 %; MCH 17.3 pg (25.0-35.0); MCHC 26.1 g/dL (31.0-37.0); MCV 66.5 fL (80.0-100.0); Mean Platelet Volume 9.9; Microcytosis Marked; Monocytes # (A) 0.6 k/uL (0-1.0); Monocytes % (A) 7 %; Neutrophils # (A) 5.7 k/uL (1.3-7.7); Neutrophils % (A) 69 %; Platelet Count 260 k/uL (150-450); RBC 4.73 m/uL (4.30-5.90); RDW 16.3 % (11.5-15.5); WBC 8.3 k/uL (3.8-10.6)
[2022-08-16 09:03] LABS: HGB 8.2 gm/dL (13.0-17.5)
[2022-08-16] MEDS ORDERED: PEG 3350 (236 GM/BTL) + LYTES 4,000 ML BOTTLE PO ONE (09:15)
[2022-08-16] MEDS: PANTOPRAZOLE 40 MG/10 ML VIAL IVP SCH ×2 (09:22→20:56)
--- NOTE | 2022-08-16 13:43 | P.PN ---
Subjective Progress Note Date: 08/16/22 Principal diagnosis: near syncope Hospital Course: 37-year-old male with a PMH of microcytic anemia and hemorrhoids who presented to the emergency room with complaints of near syncope. Upon arrival at the emergency room, the patient's patient was hypotensive with BP 75/46, pulse 102, SpO2 100% on room air, and temperature 97F. A CT abdomen and pelvis was un remarkable with EKG showing sinus rhythm at [address]/T-wave changes noted as reviewed by me. Laboratory evaluation was remarkable for hemoglobin of 9.7, up from 8.1 in 11/2019. MCV was 65.5 with lactic acid 2.3. Of note, the patient did undergo hemoglobin electrophoresis during the visit in 2019 which revealed 98.3% hemoglobin A1. Anemia panel revealed severe iron deficiency with Ferritin 1.7. CT abdomen and pelvis was negative. Surgery consulted. Subjective: Patient seen and examined at bedside. He denies any abdominal pain, nausea, vomiting, diarrhea, constipation, urinary complaints. Denies any palpitations or lightheadedness, or chest pain. Pertinent positives and negatives as discussed above, a complete review of systems was performed and all other systems are negative. Vitals Signs Reviewed. General: nontoxic, no distress, appears at stated age Derm: warm, dry Head: atraumatic, normocephalic, symmetric Eyes: EOMI, no lid lag, anicteric sclera Mouth: no lip lesion, mucus membranes moist Cardiovascular: S1S2 reg, no murmur Lungs: CTA bilateral, no rhonchi, no rales , no accessory muscle use Abdominal: soft, nontender to palpation, no guarding, no appreciable organomegaly Ext: no gross muscle atrophy, no edema, no contractures Neuro: CN II-XI grossly intact, no focal neuro deficits Psych: Alert, oriented, appropriate affect Assessment and Plan: Near syncope Microcytic anemia Hypotension - resolved with IV fluids GI bleed history of hemorrhoids - IV fluids -Monitor CBCs -Telemetry -Fall precautions -Orthostatic vitals -IV PPI -GI consult DVT ppx: SCD Code status: Full Code Anticipated discharge place: Home Anticipated discharge time: To 2 days Objective - Vital Signs Vital signs: Vital Signs Temp 98.4 F 08/16/22 13:20 Pulse 94 08/16/22 13:20 Resp 15 12/07/22 13:20 BP 113/72 08/16/22 13:20 Pulse Ox 100 08/16/22 13:20 FiO2 Intake & Output 08/15/22 08/16/22 08/16/22 18:59 06:59 18:59 Intake Total 318 Balance 318 Weight 72.575 kg 72.575 kg Intake: Oral 318 Other: # Voids 0 1 - Labs CBC & Chem 7: 08/16/22 05:32 08/16/22 05:32 Labs: Abnormal Lab Results - Last 24 Hours (Table) 08/15/22 08/15/22 08/15/22 Range/Units 18:51 18:51 18:51 WBC 11.4 H (3.8-10.6) k/uL Hgb 9.7 L (13.0-17.5) gm/dL Hct 37.8 L (39.0-53.0) % MCV 65.5 L (80.0-100.0) fL MCH 16.9 L (25.0-35.0) pg MCHC 25.7 L (31.0-37.0) g/dL RDW 16.2 H (11.5-15.5) % Neutrophils # 8.4 H (1.3-7.7) k/uL APTT 20.5 L (22.0-30.0) sec Glucose 128 H (74-99) mg/dL Plasma Lactic Acid Elías (0.7-2.0) mmol/L Albumin 5.2 H (3.5-5.0) g/dL 08/15/22 08/16/22 08/16/22 Range/Units 18:51 05:32 05:32 WBC (3.8-10.6) k/uL Hgb 8.2 L D (13.0-17.5) gm/dL Hct 31.4 L (39.0-53.0) % MCV 66.5 L (80.0-100.0) fL MCH 17.3 L (25.0-35.0) pg MCHC 26.1 L (31.0-37.0) g/dL RDW 16.3 H (11.5-15.5) % Neutrophils # (1.3-7.7) k/uL APTT (22.0-30.0) sec Glucose 100 H (74-99) mg/dL Plasma Lactic Acid Elías 2.3 H* (0.7-2.0) mmol/L Albumin (3.5-5.0) g/dL
--- NOTE | 2022-08-16 15:07 | P.GSCN ---
History of Present Illness Consult date: 08/16/22 History of present illness: CHIEF COMPLAINT: Bright red blood per rectum with syncopal episode HISTORY OF PRESENT ILLNESS: This is a 37-year-old male who presented to the hospital with complaints of bright red blood per rectum and passing out. Patient has had bright red blood per rectum for the past 2 days. Yesterday he did have some right upper quadrant abdominal pain. He denies any blood clots. Patient reports that the blood is usually either around the stool or he will just have blood drip from rectum without stool. He does have a history of hemorrhoids that bleed occasionally. He was having some shortness of breath and dizziness and lightheadedness. Patient does have a prior history of supposedly peptic ulcer disease and anemia. He is hospitalist 2 years ago. He did not have any endoscopies at that time. Hemoglobin on his on admission was 9.7. Computed tomography scan and pelvis was unremarkable. Patient has never had an EGD or colonoscopy previously. Patient was hypotensive and mild tachycardia on admission. patient had been given IV fluids. PAST MEDICAL HISTORY: See below PAST SURGICAL HISTORY: See below MEDICATIONS: See below ALLERGIES: See below SOCIAL HISTORY: No illicit drug use. REVIEW OF SYSTEMS: CONSTITUTIONAL: Denies fever or chills. HEENT: Denies blurred vision, vision changes, or eye pain. Denies hemoptysis CARDIOVASCULAR: Denies chest pain or pressure. RESPIRATORY: No shortness of breath. GASTROINTESTINAL: See HPI for pertinent findings HEMATOLOGIC: Denies bleeding disorders. GENITOURINARY: Denies any blood in urine or increased urinary frequency. SKIN: Denies pruitis. Denies rash. PHYSICAL EXAM: VITAL SIGNS: Reviewed GENERAL: Well-developed in no acute distress. HEENT: No sclera icterus. Extraocular movements grossly intact. Moist buccal mucosa. Head is atraumatic, normocephalic. No nasal drainage. ABDOMEN: Soft Nondistended. Nontender NEUROLOGIC: Alert and oriented. Cranial nerves II through XII grossly intact. LABORATORY DATA: WBC 11.4 down to 8.3 hemoglobin 9.7 on 8.2 platelets 260 Sodium 139 potassium 4.1 creatinine 0.78 Stool for occult blood negative IMAGING: Computed tomography scan abdomen and pelvis negative ASSESSMENT: 1. Bright red blood per rectum with anemia 2. History of hemorrhoids PLAN: -Patient scheduled for EGD and colonoscopy tomorrow with Dr. neri -Keep patient nothing by mouth after midnight -GoLYTELY bowel prep and clear liquid diet for today -Continue supportive care -Continue IV fluids Physician Contract Associate Manager note has been reviewed by physician. Signing provider agrees with the documented findings, assessment, and plan of care. Past Medical History Past Medical History: Blood Disorder Additional Past Medical History / Comment(s): Iron anemia, microcytic anemia, p ossible PUD, internal hemorrhoids. History of Any Multi-Drug Resistant Organisms: None Reported Past Surgical History: No Surgical Hx Reported Past Anesthesia/Blood Transfusion Reactions: Unable to Obtain Additional Past Anesthesia/Blood Transfusion Reaction / Comm: Pt has never had anesthesia Smoking Status: Former smoker - Past Family History Father Family Medical History: Diabetes Mellitus Mother Family Medical History: No Reported History Additional Family Medical History / Comment(s): Mother is healthy Medications and Allergies Home Medications Medication Instructions Recorded Confirmed Type No Known Home Medications 08/15/22 08/15/22 History Allergies Allergy/AdvReac Type Severity Reaction Status Date / Time No Known Allergies Allergy Verified 08/15/22 20:42 Surgical - Exam Vital Signs Temp Pulse Resp BP Pulse Ox 97 F L 102 H 16 75/46 100 08/15/22 18:23 08/15/22 18:23 08/15/22 18:23 08/15/22 18:23 08/15/22 18:23 Results - Labs 08/16/22 05:32 08/16/22 05:32 Abnormal Lab Results - Last 24 Hours (Table) 08/15/22 08/15/22 08/15/22 Range/Units 18:51 18:51 18:51 WBC 11.4 H (3.8-10.6) k/uL Hgb 9.7 L (13.0-17.5) gm/dL Hct 37.8 L (39.0-53.0) % MCV 65.5 L (80.0-100.0) fL MCH 16.9 L (25.0-35.0) pg MCHC 25.7 L (31.0-37.0) g/dL RDW 16.2 H (11.5-15.5) % Neutrophils # 8.4 H (1.3-7.7) k/uL APTT 20.5 L (22.0-30.0) sec Glucose 128 H (74-99) mg/dL Plasma Lactic Acid Elías (0.7-2.0) mmol/L Albumin 5.2 H (3.5-5.0) g/dL 08/15/22 08/16/22 08/16/22 Range/Units 18:51 05:32 05:32 WBC (3.8-10.6) k/uL Hgb 8.2 L D (13.0-17.5) gm/dL Hct 31.4 L (39.0-53.0) % MCV 66.5 L (80.0-100.0) fL MCH 17.3 L (25.0-35.0) pg MCHC 26.1 L (31.0-37.0) g/dL RDW 16.3 H (11.5-15.5) % Neutrophils # (1.3-7.7) k/uL APTT (22.0-30.0) sec Glucose 100 H (74-99) mg/dL Plasma Lactic Acid Elías 2.3 H* (0.7-2.0) mmol/L Albumin (3.5-5.0) g/dL Diabetes panel 08/15/22 08/16/22 Range/Units 18:51 05:32 Sodium 138 139 (137-145) mmol/L Potassium 4.0 4.1 (3.5-5.1) mmol/L Chloride 102 106 (98-107) mmol/L Carbon Dioxide 25 26 (22-30) mmol/L BUN 13 9 (9-20) mg/dL Creatinine 1.10 0.78 (0.66-1.25) mg/dL Glucose 128 H 100 H (74-99) mg/dL Calcium 9.7 8.6 (8.4-10.2) mg/dL AST 22 20 (17-59) U/L ALT 14 11 (4-49) U/L Alkaline Phosphatase 85 65 (38-126) U/L Total Protein 8.2 6.4 (6.3-8.2) g/dL Albumin 5.2 H 4.0 (3.5-5.0) g/dL Calcium panel 08/15/22 08/16/22 Range/Units 18:51 05:32 Calcium 9.7 8.6 (8.4-10.2) mg/dL Albumin 5.2 H 4.0 (3.5-5.0) g/dL Pituitary panel 08/15/22 08/16/22 Range/Units 18:51 05:32 Sodium 138 139 (137-145) mmol/L Potassium 4.0 4.1 (3.5-5.1) mmol/L Chloride 102 106 (98-107) mmol/L Carbon Dioxide 25 26 (22-30) mmol/L BUN 13 9 (9-20) mg/dL Creatinine 1.10 0.78 (0.66-1.25) mg/dL Glucose 128 H 100 H (74-99) mg/dL Calcium 9.7 8.6 (8.4-10.2) mg/dL Adrenal panel 08/15/22 08/16/22 Range/Units 18:51 05:32 Sodium 138 139 (137-145) mmol/L Potassium 4.0 4.1 (3.5-5.1) mmol/L Chloride 102 106 (98-107) mmol/L Carbon Dioxide 25 26 (22-30) mmol/L BUN 13 9 (9-20) mg/dL Creatinine 1.10 0.78 (0.66-1.25) mg/dL Glucose 128 H 100 H (74-99) mg/dL Calcium 9.7 8.6 (8.4-10.2) mg/dL Total Bilirubin 0.4 0.2 (0.2-1.3) mg/dL AST 22 20 (17-59) U/L ALT 14 11 (4-49) U/L Alkaline Phosphatase 85 65 (38-126) U/L Total Protein 8.2 6.4 (6.3-8.2) g/dL Albumin 5.2 H 4.0 (3.5-5.0) g/dL
--- NOTE | 2022-08-16 21:16 | P.CONS ---
History of Present Illness - Reason for Consult Consult date: 08/16/22 Microcytic anemia - Chief Complaint Bright red blood per rectum - History of Present Illness Mr. Whitley is a 37-year-old gentleman with a past medical history significant for hemorrhoids and iron deficiency anemia who presents to the ED with bright red blood per rectum. He noted having increased bright red blood in the toilet seat with bowel movements. By he began to develop abdominal pain yesterday along with progressive lightheadedness, dizziness, and dyspnea on exertion. Given these symptoms, he presented to the ED for additional management and monitoring. He was hospitalized in November 2019 for abdominal pain, and was suspected to have peptic ulcer disease. He was noted to have microcytic hypochromic anemia at that time. Ferritin on 12/03/2019 was 1.7 with iron saturation 1.41% hemoglobin electrophoresis revealed decreased hemoglobin A2 and did not reveal any evidence of beta thalassemia or other hemoglobinopathies. Hemoglobin on initial presentation today was 9.7 with MCV 65.5 and MCH 16.9. RDW was noted to be 16.2% platelet count was 380 with white blood cell count 11.4 (ANC 8.4). He did have hypotension with blood pressure 75/46 on presentation. He was given IV pantoprazole along with 1 L bolus of normal saline. He is feeling improved since initial presentation and following IV fluids. He denies any heavy alcohol use. He does note using Excedrin for migraine he adaches 1-2 times a week. Review of Systems 14 point review of systems conducted with pertinent positive negatives noted per HPI Past Medical History Past Medical History: Blood Disorder Additional Past Medical History / Comment(s): Iron anemia, microcytic anemia, possible PUD, internal hemorrhoids. History of Any Multi-Drug Resistant Organisms: None Reported Past Surgical History: No Surgical Hx Reported Past Anesthesia/Blood Transfusion Reactions: Unable to Obtain Additional Past Anesthesia/Blood Transfusion Reaction / Comm: Pt has never had anesthesia Smoking Status: Former smoker - Past Family History Father Family Medical History: Diabetes Mellitus Mother Family Medical History: No Reported History Additional Family Medical History / Comment(s): Mother is healthy Medications and Allergies Home Medications Medication Instructions Recorded Confirmed Type No Known Home Medications 08/15/22 08/15/22 History Allergies Allergy/AdvReac Type Severity Reaction Status Date / Time No Known Allergies Allergy Verified 08/15/22 20:42 Physical Exam Vitals: Vital Signs Temp Pulse Pulse Pulse Pulse Pulse Resp 08/16/22 13:20 98.4 F 94 15 08/16/22 10:54 92 118 H 81 08/16/22 08:06 98.4 F 84 18 08/16/22 07:00 97.9 F 83 16 08/16/22 01:51 91 15 08/15/22 22:05 92 15 BP BP BP BP BP Pulse Ox 08/16/22 13:20 113/72 100 08/16/22 10:54 108/76 114/70 108/68 08/16/22 08:06 106/72 99 08/16/22 07:00 108/72 100 08/16/22 01:51 104/73 99 08/15/22 22:05 104/73 100 Intake and Output 08/16/22 08/16/22 08/16/22 06:59 14:59 22:59 Intake Total 318 Balance 318 Intake: Oral 318 Other: Voiding Method Toilet # Voids 0 1 Weight 72.575 kg - Constitutional General appearance: average body habitus, no acute distress - EENT Eyes: EOMI - Respiratory Respiratory: bilateral: CTA - Cardiovascular Rhythm: regular - Gastrointestinal General gastrointestinal: normal bowel sounds, soft, no tenderness - Integumentary Integumentary: pale - Neurologic Neurologic: CNII-XII intact - Psychiatric Psychiatric: A&O x's 3, appropriate affect Results CBC & Chem 7: 08/16/22 05:32 08/16/22 05:32 Labs: Abnormal Lab Results - Last 24 Hours (Table) 08/16/22 08/16/22 Range/Units 05:32 05:32 Hgb 8.2 L D (13.0-17.5) gm/dL Hct 31.4 L (39.0-53.0) % MCV 66.5 L (80.0-100.0) fL MCH 17.3 L (25.0-35.0) pg MCHC 26.1 L (31.0-37.0) g/dL RDW 16.3 H (11.5-15.5) % Glucose 100 H (74-99) mg/dL Assessment and Plan Assessment: Mr. Whitley is a 37-year-old gentleman with a past medical history significant for hemorrhoids and iron deficiency anemia who presented with increased bright red blood per rectum along with lightheadedness and dizziness found to have persistent microcytic hypochromic anemia concerning for iron deficiency anemia. (1) Iron deficiency anemia Current Visit: No Status: Acute Code(s): D50.9 - IRON DEFICIENCY ANEMIA, UNSPECIFIED SNOMED Code(s): 75470593 Plan: -In addition to repeating ferritin and iron profile, recommend checking vitamin B12 and serum folic acid for additional assessment of potential nutritional etiologies for anemia -The etiology of his iron deficiency is likely multifactorial due to GI blood loss and potentially from impaired iron absorption from aspirin and Excedrin -Given his presenting symptoms, he would benefit from IV iron treatment with ferric gluconate 125 mg IV daily x3 -Continue management of lower GI bleed with PPI and colonoscopy per primary team and surgery -He should have EGD as well to rule out potential bleeding sources from the upper GI tract
[2022-08-16 22:20] LABS: % Iron Saturation 2.44 (15.00-50.00); Ferritin 6.6 ng/mL (22.0-322.0)
[2022-08-17] MEDS: SODIUM CHLORIDE 0.9% 1,000 ML IV SCH ×3 (05:24→21:55)
[2022-08-17 06:28] LABS: Anisocytosis Slight; HCT 30.3 % (39.0-53.0); HGB 7.9 gm/dL (13.0-17.5); Hypochromasia Marked; MCH 17.1 pg (25.0-35.0); MCV 65.6 fL (80.0-100.0); Microcytosis Marked; Platelet Count 283 k/uL (150-450); RBC 4.62 m/uL (4.30-5.90); WBC 6.4 k/uL (3.8-10.6)
[2022-08-17 06:40] LABS: African American GFR (CKD) >90 (>60 ml/min/1.73 sqM); Anion Gap 5 mmol/L; Blood Urea Nitrogen 4 mg/dL (9-20); Calcium 8.6 mg/dL (8.4-10.2); Carbon Dioxide 26 mmol/L (22-30); Chloride 108 mmol/L (98-107); Glucose 86 mg/dL (74-99); Non-African American GFR(CKD) >90 (>60 ml/min/1.73 sqM); Sodium 139 mmol/L (137-145)
[2022-08-17] MEDS: PANTOPRAZOLE 40 MG/10 ML VIAL IVP SCH ×2 (07:58→21:52)
[2022-08-17] MEDS: LACTATED RINGERS 1,000 ML IV SCH ×2 (09:44→18:41)
[2022-08-17] MEDS: SODIUM FERRIC GLUCONAT-SUCROSE 125 MG in SODIUM CHLORIDE 0.9% 100 ML IVPB SCH (11:01)
--- NOTE | 2022-08-17 11:34 | P.PN ---
Subjective Progress Note Date: 08/17/22 Principal diagnosis: near syncope Hospital Course: 37-year-old male with a PMH of microcytic anemia and hemorrhoids who presented to the emergency room with complaints of near syncope. Upon arrival at the emergency room, the patient's patient was hypotensive with BP 75/46, pulse 102, SpO2 100% on room air, and temperature 97F. A CT abdomen and pelvis was unre markable with EKG showing sinus rhythm at [address]/T-wave changes noted as reviewed by me. Laboratory evaluation was remarkable for hemoglobin of 9.7, up from 8.1 in 11/2019. MCV was 65.5 with lactic acid 2.3. Of note, the patient did undergo hemoglobin electrophoresis during the visit in 2019 which revealed 98.3% hemoglobin A1. Anemia panel revealed severe iron deficiency with Ferritin 1.7. CT abdomen and pelvis was negative. Surgery consulted and hematology consulted. Hemoglobin slowly down trending. EGD and colonoscopy today. Subjective: Patient seen and examined at bedside. He denies any abdominal pain, nausea, vomiting, diarrhea, constipation, urinary complaints. Denies any palpitations or lightheadedness, or chest pain. He denies any further bloody bowel movements, completed prep yesterday. Pertinent positives and negatives as discussed above, a complete review of systems was performed and all other systems are negative. Vitals Signs Reviewed. General: nontoxic, no distress, appears at stated age Derm: warm, dry Head: atraumatic, normocephalic, symmetric Eyes: EOMI, no lid lag, anicteric sclera Mouth: no lip lesion, mucus membranes moist Cardiovascular: S1S2 reg, no murmur Lungs: CTA bilateral, no rhonchi, no rales , no accessory muscle use Abdominal: soft, nontender to palpation, no guarding, no appreciable organomegaly Ext: no gross muscle atrophy, no edema, no contractures Neuro: CN II-XI grossly intact, no focal neuro deficits Psych: Alert, oriented, appropriate affect Assessment and Plan: Near syncope Iron deficiency anemia, likely blood loss Hypotension - resolved with IV fluids GI bleed history of hemorrhoids - IV fluids -Monitor CBCs, hemoglobin downtrending -Telemetry -Fall precautions -Orthostatic vitals - negative, but he had already received fluids -IV PPI -Surgery consult, pending EGD and colonoscopy today -Hematology consulted, iron studies consistent with iron deficiency anemia, started on IV iron DVT ppx: SCD Code status: Full Code Anticipated discharge place: Home Anticipated discharge time: 1-2 days Objective - Vital Signs Vital signs: Vital Signs Temp 97.7 F 08/17/22 07:00 Pulse 85 08/17/22 07:00 Resp 16 08/17/22 09:00 BP 115/76 08/17/22 07:00 Pulse Ox 100 08/17/22 07:00 FiO2 Intake & Output 08/16/22 08/17/22 08/17/22 18:59 06:59 18:59 Intake Total 318 Balance 318 Weight 72.575 kg Intake: Oral 318 Other: Voiding Method Toilet Toilet Toilet # Voids 1 2 - Labs CBC & Chem 7: 08/17/22 05:42 08/17/22 05:42 Labs: Abnormal Lab Results - Last 24 Hours (Table) 08/16/22 08/17/22 08/17/22 Range/Units 05:32 05:42 05:42 Hgb 7.9 L (13.0-17.5) gm/dL Hct 30.3 L (39.0-53.0) % MCV 65.6 L (80.0-100.0) fL MCH 17.1 L (25.0-35.0) pg MCHC 26.0 L (31.0-37.0) g/dL RDW 16.0 H (11.5-15.5) % Chloride 108 H (98-107) mmol/L BUN 4 L (9-20) mg/dL Iron 11 L (65-175) ug/dL % Saturation 2.44 L (15.00-50.00) Ferritin 6.6 L (22.0-322.0) ng/mL
[2022-08-17] MEDS ORDERED: IV FLUID CONTINUATION 900 ML IV ONE (12:21)
[2022-08-17] MEDS ORDERED: LIDOCAINE 2% INJ 20 MG/ML (2 ML VIAL) ONE (12:27)
[2022-08-17] MEDS ORDERED: PROPOFOL 10 MG/ML 20 ML VIAL IV ONE (12:27)
--- NOTE | 2022-08-17 12:38 | P.OP ---
Date of Procedure: 08/17/22 Preoperative Diagnosis: GI bleed Postoperative Diagnosis: Antral gastritis Small hiatal hernia No evidence of active upper GI bleed Procedure(s) Performed: EGD Colonoscopy Anesthesia: MAC Surgeon: Jerrod Ayala Pathology: other (Antrum) Condition: stable Disposition: PACU Description of Procedure: The patient's placed on the endoscopy table in the lateral position. He received IV sedation. The gastroscope placed oropharynx passed in the esophagus and stomach. Scope was then placed through the pylorus. The first and second portion of the duodenum appeared normal. Scope was then brought back. There is no evidence of blood in the duodenum. Scope was brought back to the pylorus. The antrum was visualized. There is minimal inflation the antrum. A biopsies performed. The scope was then retroflexed and the remainder the stomach appeared normal. There was a small sliding hiatal hernia. The GE junction was at 40 cm per the distal esophagus appeared normal. The proximal esophagus. Normal. Scope withdrawn for patient. There was no evidence of any active upper GI bleed. Next digital rectal exam was performed this revealed very large internal/external hemorrhoids. There was some blood seen in the hemorrhoids. The prostate was symmetrical without nodules. The flexible colonoscope was then advanced throughout the colon. In the right colon there was a large amount of liquid stool due to poor colonic prep. At this point scope could not be advanced. The scope was withdrawn. The transverse colon appeared normal. The descending colon appeared normal. The sigmoid colon appeared normal. Rectum was normal. Scope was withdrawn through the anus and large internal and e xternal hemorrhoids were visualized. His presumed the patient's anemia and GI bleed related to internal and external hemorrhoids.
--- NOTE | 2022-08-18 00:14 | P.PN ---
Subjective Progress Note Date: 08/17/22 Principal diagnosis: anemia Pt resting, pending endoscopy, denies any bleeding, he has received his 1st dose of IV iron and is tolerating well. Objective - Vital Signs Vital signs: Vital Signs Temp 97.7 F 08/17/22 07:00 Pulse 85 08/17/22 07:00 Resp 16 08/17/22 09:00 BP 115/76 08/17/22 07:00 Pulse Ox 100 08/17/22 07:00 FiO2 Intake & Output 08/16/22 08/17/22 08/17/22 18:59 06:59 18:59 Intake Total 318 200 Balance 318 200 Weight 72.575 kg Intake: IV 200 Oral 318 Other: Voiding Method Toilet Toilet Toilet # Voids 1 2 - Constitutional General appearance: Present: average body habitus, cooperative, no acute distress - EENT Eyes: Present: anicteric sclerae, EOMI ENT: Present: hearing grossly normal - Respiratory Details: resp even and unlabored - Integumentary Integumentary: Present: pale - Neurologic Neurologic: Present: CNII-XII intact - Musculoskeletal Musculoskeletal: Present: strength equal bilaterally - Psychiatric Psychiatric: Present: A&O x's 3, appropriate affect, intact judgment & insight - Labs CBC & Chem 7: 08/17/22 05:42 08/17/22 05:42 Labs: Abnormal Lab Results - Last 24 Hours (Table) 08/16/22 08/17/22 08/17/22 Range/Units 05:32 05:42 05:42 Hgb 7.9 L (13.0-17.5) gm/dL Hct 30.3 L (39.0-53.0) % MCV 65.6 L (80.0-100.0) fL MCH 17.1 L (25.0-35.0) pg MCHC 26.0 L (31.0-37.0) g/dL RDW 16.0 H (11.5-15.5) % Chloride 108 H (98-107) mmol/L BUN 4 L (9-20) mg/dL Iron 11 L (65-175) ug/dL % Saturation 2.44 L (15.00-50.00) Ferritin 6.6 L (22.0-322.0) ng/mL Assessment and Plan (1) Iron deficiency anemia Current Visit: Yes Status: Chronic Priority: High Code(s): D50.9 - IRON DEFICIENCY ANEMIA, UNSPECIFIED SNOMED Code(s): 37160761 Plan: Labs reviewed, reveal iron deficiency, parenteral iron started Prep for endoscopy, pending op notes and any pathology
[2022-08-18] MEDS: SODIUM CHLORIDE 0.9% 1,000 ML IV SCH (04:58)
[2022-08-18] MEDS: SODIUM FERRIC GLUCONAT-SUCROSE 125 MG in SODIUM CHLORIDE 0.9% 100 ML IVPB SCH (08:26)
[2022-08-18] MEDS: PANTOPRAZOLE 40 MG/10 ML VIAL IVP SCH (08:27)
[2022-08-18 09:02] VITALS: BP 111/65; PULSE 87; RESP 16; TEMP 98.2
[2022-08-18 10:50] LABS: Anisocytosis Slight; HCT 30.4 % (39.0-53.0); HGB 7.9 gm/dL (13.0-17.5); Hypochromasia Marked; MCH 17.2 pg (25.0-35.0); MCV 65.9 fL (80.0-100.0); Mean Platelet Volume 8.6; Microcytosis Marked; Platelet Count 277 k/uL (150-450); RBC 4.61 m/uL (4.30-5.90); RDW 16.4 % (11.5-15.5); WBC 7.6 k/uL (3.8-10.6)
--- NOTE | 2022-08-18 11:47 | P.PN ---
Subjective Progress Note Date: 08/18/22 Principal diagnosis: near syncope Hospital Course: 37-year-old male with a PMH of microcytic anemia and hemorrhoids who presented to the emergency room with complaints of near syncope. Upon arrival at the emergency room, the patient's patient was hypotensive with BP 75/46, pulse 102, SpO2 100% on room air, and temperature 97F. A CT abdomen and pelvis was unr emarkable with EKG showing sinus rhythm at [address]/T-wave changes noted as reviewed by me. Laboratory evaluation was remarkable for hemoglobin of 9.7, up from 8.1 in 11/2019. MCV was 65.5 with lactic acid 2.3. Iron studies consistent with iron deficiency anemia. CT abdomen and pelvis was negative. Surgery consulted and hematology consulted. Hemoglobin slowly down trending. EGD and colonoscopy completed yesterday. EGD showed antral gastritis and small hiatal hernia. Colonoscopy showed very large internal and external hemorrhoids, patient had large amount of liquid stool due to poor prep in the right colon. Transverse colon and descending colon and sigmoid colon appeared normal. Subjective: Patient seen and examined at bedside. He denies any abdominal pain, nausea, vo miting, diarrhea, constipation, urinary complaints. Denies any palpitations or lightheadedness, or chest pain. He denies any further bloody bowel movements. Pertinent positives and negatives as discussed above, a complete review of systems was performed and all other systems are negative. Vitals Signs Reviewed. General: nontoxic, no distress, appears at stated age Derm: warm, dry Head: atraumatic, normocephalic, symmetric Eyes: EOMI, no lid lag, anicteric sclera Mouth: no lip lesion, mucus membranes moist Cardiovascular: S1S2 reg, no murmur Lungs: CTA bilateral, no rhonchi, no rales , no accessory muscle use Abdominal: soft, nontender to palpation, no guarding, no appreciable organome mayelin Ext: no gross muscle atrophy, no edema, no contractures Neuro: CN II-XI grossly intact, no focal neuro deficits Psych: Alert, oriented, appropriate affect Assessment and Plan: Near syncope Iron deficiency anemia, blood loss Hypotension - resolved with IV fluids GI bleed Large internal and external hemorrhoids Antral gastritis - IV fluids -Monitor CBCs, hemoglobin downtrending nonstaining -Telemetry -Fall precautions -Orthostatic vitals - negative, but he had already received fluids -IV PPI she should've daily -Surgery consult, EGD and colonoscopy completed -Hematology consulted, iron studies consistent with iron deficiency anemia, started on IV iron DVT ppx: SCD Code status: Full Code Anticipated discharge place: Home Anticipated discharge time: Likely tomorrow Objective - Vital Signs Vital signs: Vital Signs Temp 98.2 F 08/18/22 07:50 Pulse 87 08/18/22 07:50 Resp 16 08/18/22 07:50 BP 111/65 08/18/22 07:50 Pulse Ox 100 08/18/22 07:50 FiO2 Intake & Output 08/17/22 08/18/22 08/18/22 18:59 06:59 18:59 Intake Total 320 Output Total 400 400 Balance -80 -400 Intake: IV 200 Oral 120 Output: Stool 400 400 Other: Voiding Method Toilet Toilet Toilet # Voids 2 - Labs CBC & Chem 7: 08/18/22 10:23 08/17/22 05:42 Labs: Abnormal Lab Results - Last 24 Hours (Table) 08/18/22 Range/Units 10:23 Hgb 7.9 L (13.0-17.5) gm/dL Hct 30.4 L (39.0-53.0) % MCV 65.9 L (80.0-100.0) fL MCH 17.2 L (25.0-35.0) pg MCHC 26.0 L (31.0-37.0) g/dL RDW 16.4 H (11.5-15.5) %
--- NOTE | 2022-08-18 13:58 | P.PN ---
Subjective Progress Note Date: 08/18/22 CHIEF COMPLAINT: GI bleed HISTORY OF PRESENT ILLNESS: Patient is status post EGD and colonoscopy results showed antral gastritis, small hiatal hernia and large internal and external hemorrhoids. Patient's anemia and GI bleed likely related to internal and external hemorrhoids. Patient denies any further bleeding. Denies any rectal pain. Hemoglobin remained stable at 7.9. He is tolerating diet. Afebrile. Patient seen and examined with Dr. neri PHYSICAL EXAM: VITAL SIGNS: Reviewed. GENERAL: Well-developed in no acute distress. HEENT: No sclera icterus. Extraocular movements grossly intact. Moist buccal mucosa. Head is atraumatic, normocephalic. ABDOMEN: Soft. Nondistended. Nontender. NEUROLOGIC: Alert and oriented. Cranial nerves II through XII grossly intact. ASSESSMENT: 1. Acute GI bleed likely secondary to hemorrhoids 2. Patient status post EGD and colonoscopy results showing gastritis, hiatal hernia and internal and external hemorrhoids PLAN: -Recommend hemorrhoidectomy outpatient -Patient can be discharged from surgical standpoint Physician Inside Meter Tester note has been reviewed by physician. Signing provider agrees with the documented findings, assessment, and plan of care. Objective - Vital Signs Vital signs: Vital Signs Temp 98.2 F 08/18/22 07:50 Pulse 87 08/18/22 07:50 Resp 16 08/18/22 07:50 BP 111/65 08/18/22 07:50 Pulse Ox 100 08/18/22 07:50 FiO2 Intake & Output 08/17/22 08/18/22 08/18/22 18:59 06:59 18:59 Intake Total 320 118 Output Total 400 400 Balance -80 -400 118 Intake: IV 200 Oral 120 118 Output: Stool 400 400 Other: Voiding Method Toilet Toilet Toilet # Voids 2 - Labs CBC & Chem 7: 08/18/22 10:23 08/17/22 05:42 Labs: Abnormal Lab Results - Last 24 Hours (Table) 08/18/22 Range/Units 10:23 Hgb 7.9 L (13.0-17.5) gm/dL Hct 30.4 L (39.0-53.0) % MCV 65.9 L (80.0-100.0) fL MCH 17.2 L (25.0-35.0) pg MCHC 26.0 L (31.0-37.0) g/dL RDW 16.4 H (11.5-15.5) %
--- NOTE | 2022-08-18 14:33 | P.DS ---
Providers Date of admission: 08/18/22 08:45 Expected date of discharge: 08/18/22 Attending physician: Kassidy Goss MD Consults: 08/15/22 21:47 Consult Physician Urgent Consulting Provider: Corazon Borrego Consult Reason/Comments: microcytic anemia Do you want consulting provider notified?: Yes 08/16/22 01:34 Consult Physician Urgent Consulting Provider: Jerrod Ayala Consult Reason/Comments: GIB Do you want consulting provider notified?: Yes Primary care physician: Jayme Walsh Hospital Course: Discharge Diagnosis: Near syncope Acute blood loss anemia Iron deficiency anemia Rectal bleeding Large internal and external hemorrhoids Antral gastritis Hospital Course: 37-year-old male with a PMH of microcytic anemia and hemorrhoids who presented to the emergency room with complaints of near syncope. Upon arrival at the emergency room, the patient's patient was hypotensive with BP 75/46, pulse 102, SpO2 100% on room air, and temperature 97F. A CT abdomen and pelvis was unremarkable with EKG showing sinus rhythm at [address]/T-wave changes noted as reviewed by me. Laboratory evaluation was remarkable for hemoglobin of 9.7, up from 8.1 in 11/2019. MCV was 65.5 with lactic acid 2.3. Iron studies consistent with iron deficiency anemia. CT abdomen and pelvis was negative. Surgery consulted and hematology consulted. Hemoglobin slowly downtrended but stable at discharge. EGD and colonoscopy completed. EGD showed antral gastritis and small hiatal hernia. Colonoscopy showed very large internal and external hemorrhoids, patient had large amount of liquid stool due to poor prep in the right colon. Transverse colon and descending colon and sigmoid colon appeared normal. Outpatient hemorrhoidectomy and surgery. Patient received IV iron 2 doses. Will likely benefit for further IV iron as outpatient. Patient also being discharged on oral Protonix. Patient seen and examined at bedside. Vital signs reviewed and stable. General: nontoxic, no distress, appears at stated age Derm: warm, dry Head: atraumatic, normocephalic, symmetric Eyes: EOMI, no lid lag, anicteric sclera Mouth: no lip lesion, mucus membranes moist Cardiovascular: S1S2 reg, no murmur Lungs: CTA bilateral, no rhonchi, no rales , no accessory muscle use Abdominal: soft, nontender to palpation, no guarding, no appreciable organomegaly Ext: no gross muscle atrophy, no edema, no contractures Neuro: CN II-XI grossly intact, no focal neuro deficits Psych: Alert, oriented, appropriate affect A total of 38 minutes of time were spent preparing this complex discharge summary. Patient was discharged on 08/18/22 at 14:29. Patient Condition at Discharge: Stable Plan - Discharge Summary Discharge Rx Participant: No New Discharge Prescriptions: New Pantoprazole [Protonix] 40 mg PO DAILY #30 tab Discharge Medication List Pantoprazole [Protonix] 40 mg PO DAILY #30 tab 08/18/22 [Rx] Follow up Appointment(s)/Referral(s): Bob Tobar MD [STAFF PHYSICIAN] - 09/29/22 11:15 am Jillian Delacruz MD [Primary Care Provider] - 1-2 days Jerrod Ayala MD [STAFF PHYSICIAN] - 1 Week Patient Instructions/Handouts: Hemorrhoids (DC), Rectal Bleeding (DC) Activity/Diet/Wound Care/Special Instructions: Please see your PCP in 1-2 days. Please see surgery in 1 week for removal of hemorrhoids. Discharge Disposition: HOME SELF-CARE
[2022-08-19] MEDS ORDERED: PANTOPRAZOLE 40 MG/10 ML VIAL IVP SCH (09:00)
== END 2022-08-18 15:05 | disposition home or self-care (01) | DRG 394 ==
LOC: EC 18:20 → 6NMEDSUR 21:49 → OBSVTOIN 08-18 08:45
PROVIDERS: ADMIT Internal Medicine; ATTEND Internal Medicine
PROC: 0DB78ZX Excision of Stomach, Pylorus, Via Natural or Artificial Opening Endoscopic, Diagnostic (ICD-10-PCS; principal; 2022-08-17 12:35)
PROC: 0DJD8ZZ Inspection of Lower Intestinal Tract, Via Natural or Artificial Opening Endoscopic (ICD-10-PCS; principal; 2022-08-17 12:35)
DX: K64.4 Residual hemorrhoidal skin tags (principal); D62 Acute posthemorrhagic anemia; K64.8 Other hemorrhoids; K29.70 Gastritis, unspecified, without bleeding; K44.9 Diaphragmatic hernia without obstruction or gangrene; Z87.11 Personal history of peptic ulcer disease; Z87.891 Personal history of nicotine dependence; D50.9 Iron deficiency anemia, unspecified; G43.909 Migraine, unspecified, not intractable, without status migrainosus; I95.9 Hypotension, unspecified; R00.0 Tachycardia, unspecified
CPT/HCPCS: 36415; 43239; 45378; 74177; 80048; 80053; 82272; 82607; 82728; 82746; 83540; 83550; 83605; 83690; 83735; 84484; 85025; 85027; 85610; 85730; 86850; 86900; 86901; 88305

== ENCOUNTER 2024-08-08 23:59 | Emergency (ER) | payer OTHER ==
--- NOTE | 2024-08-09 02:30 | ED ---
Abdominal Pain HPI - General Chief Complaint: Abdominal Pain Stated Complaint: ABD Pain Time Seen by Provider: 08/09/24 00:12 Source: patient, RN notes reviewed Mode of arrival: ambulatory Limitations: no limitations - History of Present Illness Initial Comments: This is a 39 old male with a history of anemia and hemorrhoids to the emergency department for chief complaint of left lower quadrant abdominal pain that occurred approximately 1 hour prior to arrival. States that it feels like it is a squeezing sensation that is constant but will occasionally become exacerbated. Patient states that he had an episode of hematochezia earlier today. States that he does not normally experience much blood in his stool even though he has a history of hemorrhoids. He denies fevers, chills, chest pain, shortness of breath or difficulty breathing. Patient endorses nausea and vomiting with no hematemesis or coffee-ground emesis. Patient states that he has taken iron supplements previously for anemia but currently does not. Denies previous surgical abdominal history. Patient had a history of a hospitalization due to anemia that was diagnosis secondary to peptic ulcer disease. - Related Data Previous Rx's Medication Instructions Recorded Pantoprazole [Protonix] 40 mg PO DAILY #30 tab 08/18/22 Ketorolac [Toradol] 10 mg PO Q8HR #15 tab 08/09/24 Ondansetron Odt [Zofran Odt] 4 mg PO Q8HR PRN #10 tab 08/09/24 Allergies Allergy/AdvReac Type Severity Reaction Status Date / Time No Known Allergies Allergy Verified 08/09/24 00:02 Review of Systems ROS Statement: Those systems with pertinent positive or pertinent negative responses have been documented in the HPI. ROS Other: All systems not noted in ROS Statement are negative. Past Medical History Past Medical History: No Reported History Additional Past Medical History / Comment(s): Iron anemia, microcytic anemia, possible PUD, internal hemorrhoids. History of Any Multi-Drug Resistant Organisms: None Reported Past Surgical History: No Surgical Hx Reported Past Anesthesia/Blood Transfusion Reactions: Unable to Obtain Additional Past Anesthesia/Blood Transfusion Reaction / Comment(s): Pt has never had anesthesia Past Psychological History: No Psychological Hx Reported Smoking Status: Never smoker Past Alcohol Use History: Occasional Past Drug Use History: Marijuana - Past Family History Father Family Medical History: Diabetes Mellitus Mother Family Medical History: No Reported History Additional Family Medical History / Comment(s): Mother is healthy General Exam Limitations: no limitations General appearance: alert, in no apparent distress Eye exam: Present: normal appearance, PERRL, EOMI. Absent: scleral icterus, conjunctival injection, periorbital swelling ENT exam: Present: normal exam, mucous membranes moist Respiratory exam: Present: normal lung sounds bilaterally. Absent: respiratory distress, wheezes, rales, rhonchi, stridor Cardiovascular Exam: Present: regular rate, normal rhythm, normal heart sounds. Absent: systolic murmur, diastolic murmur, rubs, gallop, clicks GI/Abdominal exam: Present: soft, tenderness (Left lower quadrant), normal bowel sounds. Absent: distended, guarding, rebound, rigid Extremities exam: Present: normal inspection, full ROM, normal capillary refill. Absent: tenderness, pedal edema, joint swelling, calf tenderness Back exam: Present: normal inspection Skin exam: Present: warm, dry, intact, normal color. Absent: rash Course Vital Signs 08/09/24 00:00 Temperature 98.3 F Pulse Rate 98 Respiratory 18 Rate Blood Pressure 152/82 O2 Sat by Pulse 100 Oximetry Medical Decision Making - Medical Decision Making Was pt. sent in by a medical professional or institution (, PA, RAG INSPECTOR, urgent care, hospital, or care home...) When possible be specific @ -No Did you speak to anyone other than the patient for history (EMS, parent, family, police, friend...)? What history was obtained from this source @ -No Did you review nursing and triage notes (agree or disagree)? Why? @ -I reviewed and agree with nursing and triage notes Were old charts reviewed (outside hosp., previous admission, EMS record, old EKG, old radiological studies, urgent care reports/EKG's, care home records)? Report findings @ -No old charts were reviewed Differential Diagnosis (chest pain, altered mental status, abdominal pain women, abdominal pain men, vaginal bleeding, weakness, fever, dyspnea, syncope, headache, dizziness, GI bleed, back pain, seizure, CVA, palpatations, mental health, musculoskeletal)? @ -Differential Abdominal Pain Men: Appendicitis, cholecystitis, diverticulosis, ischemic bowel, pancreatitis, hepatitis, UTI, gastroenteritis, AAA, incarcerated hernia, bowel obstruction, constipation, inflammatory bowel, hepatitis, peptic ulcer disease, splenic infarction, perforated viscus, testicular torsion, this is not meant to be an all-inclusive list EKG interpreted by me (3pts min.). @ -None X-rays interpreted by me (1pt min.). @ -None done CT interpreted by me (1pt min.). @ -CT of the abdomen pelvis with IV contrast remarkable for liquid stool in the colon concerning for diarrheal disease U/S interpreted by me (1pt. min.). @ -None done What testing was considered but not performed or refused? (CT, X-rays, U/S, labs)? Why? @ -None What meds were considered but not given or refused? Why? @ -None Did you discuss the management of the patient with other professionals (professionals i.e. , PA, RAG INSPECTOR, lab, RT, psych nurse, high school social studies teacher, associate attorney, teacher, hospital chief financial officer, therapeutic case manager)? Give summary @ -No Was smoking cessation discussed for >3mins.? @ -No Was critical care preformed (if so, how long)? @ -No Were there social determinants of health that impacted care today? How? (Homelessness, low income, unemployed, alcoholism, drug addiction, transportation, low edu. Level, literacy, decrease access to med. care, usp, rehab)? @ -No Was there de-escalation of care discussed even if they declined (Discuss DNR or withdrawal of care, Hospice)? DNR status @ -No What co-morbidities impacted this encounter? (DM, HTN, Smoking, COPD, CAD, Cancer, CVA, ARF, Chemo, Hep., AIDS, mental health diagnosis, sleep apnea, morbid obesity)? @ -None Was patient admitted / discharged? Hospital course, mention meds given and route, prescriptions, significant lab abnormalities, going to OR and other pertinent info. @ -39-year-old male with abdominal pain. On evaluation patient is resting comfortably no signs acute distress. Vital stable. Is noted to have left lower quadrant tenderness to palpation with equal bowel sounds heard throughout all quadrants. There is no signs of rebound tenderness or rigidity. Patient is provided with antiemetics and pain medication pending laboratory results. Patient is in agreement with this plan. Labs remarkable for leukocytosis of 19.5, elevated neutrophils at 16.3, anemia that is chronic with a hemoglobin of 8.9 hematocrit 32.9, lipase elevated at 391, amylase 132. CT remarkable for liquid bowel within the colon. Discussed with patient at bedside that symptoms are likely secondary to gastroenteritis and recommend he follow liquid diet over the next 24 hours and slowly reintroduce foods and take Zofran as needed for nausea. Discussed with Dr. Begum Undiagnosed new problem with uncertain prognosis? @ -No Drug Therapy requiring intensive monitoring for toxicity (Heparin, Nitro, Insulin, Cardizem)? @ -No Were any procedures done? @ -No Diagnosis/symptom? @ -gastroenteritis Acute, or Chronic, or Acute on Chronic? @ -acute Uncomplicated (without systemic symptoms) or Complicated (systemic symptoms)? @ -uncomplicated Side effects of treatment? @ -No Exacerbation, Progression, or Severe Exacerbation? @ -No Poses a threat to life or bodily function? How? (Chest pain, [place], [place], pneumonia, PE, COPD, DKA, ARF, appy, cholecystitis, CVA, Diverticulitis, Homicidal, Suicidal, threat to staff... and all critical care pts) @ -No - Lab Data Result diagrams: 08/09/24 02:34 08/09/24 02:34 Lab Results 08/09/24 08/09/24 08/09/24 Range/Units 02:34 02:34 02:34 WBC 19.5 H (3.8-10.6) k/uL RBC 5.22 (4.30-5.90) m/uL Hgb 8.9 L (13.0-17.5) gm/dL Hct 32.9 L (39.0-53.0) % MCV 63.1 L (80.0-100.0) fL MCH 17.0 L (25.0-35.0) pg MCHC 27.0 L (31.0-37.0) g/dL RDW 16.9 H (11.5-15.5) % Plt Count 347 (150-450) k/uL MPV 6.7 Neutrophils % 84 % Lymphocytes % 7 % Monocytes % 5 % Eosinophils % 2 % Basophils % 0 % Neutrophils # 16.3 H (1.3-7.7) k/uL Lymphocytes # 1.4 (1.0-4.8) k/uL Monocytes # 1.0 (0-1.0) k/uL Eosinophils # 0.5 (0-0.7) k/uL Basophils # 0.0 (0-0.2) k/uL Hypochromasia Marked Anisocytosis Slight Microcytosis Marked Sodium 140 (137-145) mmol/L Potassium 4.4 (3.5-5.1) mmol/L Chloride 109 H (98-107) mmol/L Carbon Dioxide 24 (22-30) mmol/L Anion Gap 7 mmol/L BUN 14 (9-20) mg/dL Creatinine 0.72 (0.66-1.25) mg/dL Est GFR (CKD-EPI)AfAm >90 (>60 ml/min/1.73 sqM) Est GFR (CKD-EPI)NonAf >90 (>60 ml/min/1.73 sqM) Glucose 111 H (74-99) mg/dL Plasma Lactic Acid Elías 1.1 (0.7-2.0) mmol/L Calcium 9.3 (8.4-10.2) mg/dL Total Bilirubin 0.7 (0.2-1.3) mg/dL AST 29 (17-59) U/L ALT 14 (4-49) U/L Alkaline Phosphatase 75 (38-126) U/L Total Protein 7.7 (6.3-8.2) g/dL Albumin 4.9 (3.5-5.0) g/dL Amylase 132 H (30-110) U/L Lipase 391 H (23-300) U/L Disposition Clinical Impression: Gastroenteritis Disposition: HOME SELF-CARE Condition: Good Instructions (If sedation given, give patient instructions): Gastroenteritis (ED) Additional Instructions: Please return to the Emergency Department if symptoms worsen or any other concerns. Recommend that you follow a clear liquid diet over the next 24 hours and slowly reintroducing foods after such as bananas, rice, applesauce, and toast. Increase hydration. Prescriptions: Ketorolac [Toradol] 10 mg PO Q8HR #15 tab Ondansetron Odt [Zofran Odt] 4 mg PO Q8HR PRN #10 tab PRN Reason: Nausea Is patient prescribed a controlled substance at d/c from ED?: No Referrals: Jillian Delacruz MD [Primary Care Provider] - 1-2 days Time of Disposition: 04:14
[2024-08-09] MEDS: KETOROLAC 15 MG/ML 1 ML VIAL IVP STA (02:38)
[2024-08-09] MEDS: ONDANSETRON 4 MG/2 ML VIAL IVP STA (02:38)
[2024-08-09 03:02] LABS: Anisocytosis Slight; Basophils % (A) 0 %; Eosinophils # (A) 0.5 k/uL (0-0.7); Eosinophils % (A) 2 %; HCT 32.9 % (39.0-53.0); HGB 8.9 gm/dL (13.0-17.5); Hypochromasia Marked; Lymphocytes # (A) 1.4 k/uL (1.0-4.8); Lymphocytes % (A) 7 %; MCV 63.1 fL (80.0-100.0); Mean Platelet Volume 6.7; Microcytosis Marked; Monocytes % (A) 5 %; Neutrophils # (A) 16.3 k/uL (1.3-7.7); Neutrophils % (A) 84 %; Platelet Count 347 k/uL (150-450); RBC 5.22 m/uL (4.30-5.90); RDW 16.9 % (11.5-15.5); WBC 19.5 k/uL (3.8-10.6)
[2024-08-09 03:21] LABS: ALT 14 U/L (4-49); AST 29 U/L (17-59); African American GFR (CKD) >90 (>60 ml/min/1.73 sqM); Albumin 4.9 g/dL (3.5-5.0); Alkaline Phosphatase 75 U/L (38-126); Amylase 132 U/L (30-110); Anion Gap 7 mmol/L; Blood Urea Nitrogen 14 mg/dL (9-20); Calcium 9.3 mg/dL (8.4-10.2); Carbon Dioxide 24 mmol/L (22-30); Chloride 109 mmol/L (98-107); Glucose 111 mg/dL (74-99); Lipase 391 U/L (23-300); Non-African American GFR(CKD) >90 (>60 ml/min/1.73 sqM); Potassium 4.4 mmol/L (3.5-5.1); Sodium 140 mmol/L (137-145); Total Bilirubin 0.7 mg/dL (0.2-1.3); Total Protein 7.7 g/dL (6.3-8.2)
--- NOTE | 2024-08-09 04:09 | CT ---
EXAM: CT Abdomen and Pelvis With Intravenous Contrast CLINICAL HISTORY: ITS.REASON CT Reason: LLQ ab pain, leukocytosis TECHNIQUE: Axial computed tomography images of the abdomen and pelvis with intravenous contrast. CTDI is 14.5 mGy and DLP is 643.8 mGy-cm. This CT exam was performed using one or more of the following dose reduction techniques: automated exposure control, adjustment of the mA and/or kV according to patient size, and/or use of iterative reconstruction technique. COMPARISON: No relevant prior studies available. FINDINGS: Lung bases: Unremarkable. No mass. No consolidation. ABDOMEN: Liver: Unremarkable. No mass. Gallbladder and bile ducts: Unremarkable. No calcified stones. No ductal dilation. Pancreas: Unremarkable. No mass. No ductal dilation. Spleen: Unremarkable. No splenomegaly. Adrenals: Unremarkable. No mass. Kidneys and ureters: Unremarkable. No solid mass. No hydronephrosis. Stomach and bowel: Liquid stool in the colon, concerning for diarrheal disease. No obstruction. No mucosal thickening. PELVIS: Appendix: No findings to suggest acute appendicitis. Bladder: Unremarkable. No mass. Reproductive: Unremarkable as visualized. ABDOMEN and PELVIS: Intraperitoneal space: Unremarkable. No free air. No significant fluid collection. Bones/joints: No acute fracture. No dislocation. Soft tissues: Unremarkable. Vasculature: Unremarkable. No abdominal aortic aneurysm. Lymph nodes: Unremarkable. No enlarged lymph nodes. IMPRESSION: Liquid stool in the colon, concerning for diarrheal disease.
[2024-08-09] MEDS: ONDANSETRON 4 MG ODT STARTER PACK 2 TAB BTL PO STA (05:08)
[2024-08-09 05:12] VITALS: BP 128/80; PULSE 79; RESP 17; TEMP 98.1
== END 2024-08-09 05:12 | disposition home or self-care (01) ==
LOC: EC 23:59
DX: K52.9 Noninfective gastroenteritis and colitis, unspecified (principal); D72.828 Other elevated white blood cell count
CPT/HCPCS: 36415; 80053; 82150; 83605; 83690; 85025; 74177; 99284; 96374; 96375; J2405; J1885; S0119; Q9967

== ENCOUNTER 2025-01-08 18:17 | Emergency (ER) | payer OTHER ==
[2025-01-08 18:28] VITALS: RESP 18
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
[2025-01-08 22:04] VITALS: BP 143/90; PULSE 79; TEMP 97.9
== END 2025-01-08 22:03 | disposition home or self-care (01) ==
LOC: EC 18:17
DX: S16.1XXA Strain of muscle, fascia and tendon at neck level, initial encounter (principal); V89.2XXA Person injured in unspecified motor-vehicle accident, traffic, initial encounter; Y92.410 Unspecified street and highway as the place of occurrence of the external cause
CPT/HCPCS: 70450; 72125; 99284

== ENCOUNTER 2025-01-21 20:03 | Emergency (ER) | payer OTHER ==
[2025-01-21 20:10] VITALS: TEMP 98.7
--- NOTE | 2025-01-21 20:21 | ED ---
Fall HPI - General Chief Complaint: Fall Stated Complaint: fall Time Seen by Provider: 01/21/25 20:19 Source: patient, RN notes reviewed, old records reviewed Mode of arrival: EMS Limitations: no limitations - History of Present Illness Initial Comments: 39-year-old male presenting to the ER for evaluation of fall. Patient states about a week ago he had internal hemorrhoid surgery completed at [facility] and has not been able to get a bowel movement since then. He was seen yesterday by surgeon and prescribed MiraLAX and stool softeners. Patient states today while attempting to have a bowel movement he was having extreme pain at surgical site. After standing up from the toilet patient believes he passed out. He states he woke up on the ground and immediately called for his father to call EMS. He admits to a head injury and states he was unconscious for what he believes was "a few seconds". He denies any blood thinner use. Patient is complaining of current pain to rectum. He is prescribed [place] 7.5 but has not taken any today. He denies any current dizziness, lightheadedness, chest pain, shortness of breath or other complaints. No paresthesias to bilateral upper or lower extremities. No other complaints. - Related Data Previous Rx's Medication Instructions Recorded Pantoprazole [Protonix] 40 mg PO DAILY #30 tab 08/18/22 Ketorolac [Toradol] 10 mg PO Q8HR #15 tab 08/09/24 Ondansetron Odt [Zofran Odt] 4 mg PO Q8HR PRN #10 tab 08/09/24 Allergies Allergy/AdvReac Type Severity Reaction Status Date / Time No Known Allergies Allergy Verified 01/21/25 20:09 Review of Systems ROS Statement: Those systems with pertinent positive or pertinent negative responses have been documented in the HPI. ROS Other: All systems not noted in ROS Statement are negative. Past Medical History Past Medical History: No Reported History Additional Past Medical History / Comment(s): Iron anemia, microcytic anemia, possible PUD, internal hemorrhoids. History of Any Multi-Drug Resistant Organisms: None Reported Past Surgical History: No Surgical Hx Reported Additional Past Surgical History / Comment(s): hemorrhoid surgery 01/14/2025 Past Anesthesia/Blood Transfusion Reactions: Unable to Obtain Additional Past Anesthesia/Blood Transfusion Reaction / Comment(s): Pt has never had anesthesia Past Psychological History: No Psychological Hx Reported Smoking Status: Current every day smoker Past Alcohol Use History: Occasional Past Drug Use History: Marijuana - Past Family History Father Family Medical History: Diabetes Mellitus Mother Family Medical History: No Reported History Additional Family Medical History / Comment(s): Mother is healthy General Exam Limitations: no limitations Course Vital Signs 01/21/25 01/21/25 20:05 21:57 Temperature 98.7 F Pulse Rate 92 Pulse Rate [ 86 Sitting Pulse Oximetery] Pulse Rate [ 93 Standing Pulse Oximetery] Pulse Rate [ 82 Supine Pulse Oximetery] Respiratory 19 Rate Blood Pressure 103/71 Blood Pressure 112/84 [Right Arm Sitting] Blood Pressure 107/72 [Right Arm Standing] Blood Pressure 112/71 [Right Arm Supine] O2 Sat by Pulse 100 Oximetry Medical Decision Making - Lab Data Result diagrams: 01/21/25 20:29 01/21/25 20:29 Lab Results 01/21/25 01/21/25 01/21/25 Range/Units 20:29 20:29 20:29 WBC 7.84 (4.50-10.00) 10*3/uL RBC 4.37 L (4.40-5.60) 10*6/uL Hgb 7.6 L (13.0-17.0) g/dL Hct 28.6 L (39.6-50.0) % MCV 65.4 L (80.0-97.0) fL MCH 17.4 L (27.0-32.0) pg MCHC 26.6 L (32.0-37.0) g/dL Plt Count 419 (140-440) 10*3/uL MPV 9.9 (9.5-12.2) fL Immature Gran % (Auto) 0.3 % Neutrophils % 73.3 % Lymphocytes % 17.0 % Monocytes % 6.4 % Eosinophils % 2.2 % Basophils % 0.8 % Immature Gran # 0.02 (0.00-0.04) 10*3/uL Neutrophils # 5.76 (1.80-7.70) 10*3/uL Lymphocytes # 1.33 (0.90-5.00) 10*3/uL Monocytes # 0.50 (0.20-1.00) 10*3/uL Eosinophils # 0.17 (0.04-0.35) 10*3/uL Basophils # 0.06 (0.00-0.10) 10*3/uL PT 10.9 (10.0-12.5) sec INR 1.0 (<1.2) APTT 19.4 L (22.0-30.0) sec Sodium 139 (137-145) mmol/L Potassium 4.0 (3.5-5.1) mmol/L Chloride 104 (98-107) mmol/L Carbon Dioxide 24 (22-30) mmol/L Anion Gap 11 mmol/L BUN 15 (9-20) mg/dL Creatinine 0.80 (0.66-1.25) mg/dL Est GFR (CKD-EPI)AfAm >90 (>60 ml/min/1.73 sqM) Est GFR (CKD-EPI)NonAf >90 (>60 ml/min/1.73 sqM) Glucose 122 H (74-99) mg/dL Calcium 9.1 (8.4-10.2) mg/dL Total Bilirubin 0.4 (0.2-1.3) mg/dL AST 25 (17-59) U/L ALT 21 (4-49) U/L Alkaline Phosphatase 58 (38-126) U/L Troponin I (0.000-0.034) ng/mL Total Protein 6.9 (6.3-8.2) g/dL Albumin 4.1 (3.5-5.0) g/dL 01/21/25 Range/Units 20:29 WBC (4.50-10.00) 10*3/uL RBC (4.40-5.60) 10*6/uL Hgb (13.0-17.0) g/dL Hct (39.6-50.0) % MCV (80.0-97.0) fL MCH (27.0-32.0) pg MCHC (32.0-37.0) g/dL Plt Count (140-440) 10*3/uL MPV (9.5-12.2) fL Immature Gran % (Auto) % Neutrophils % % Lymphocytes % % Monocytes % % Eosinophils % % Basophils % % Immature Gran # (0.00-0.04) 10*3/uL Neutrophils # (1.80-7.70) 10*3/uL Lymphocytes # (0.90-5.00) 10*3/uL Monocytes # (0.20-1.00) 10*3/uL Eosinophils # (0.04-0.35) 10*3/uL Basophils # (0.00-0.10) 10*3/uL PT (10.0-12.5) sec INR (<1.2) APTT (22.0-30.0) sec Sodium (137-145) mmol/L Potassium (3.5-5.1) mmol/L Chloride (98-107) mmol/L Carbon Dioxide (22-30) mmol/L Anion Gap mmol/L BUN (9-20) mg/dL Creatinine (0.66-1.25) mg/dL Est GFR (CKD-EPI)AfAm (>60 ml/min/1.73 sqM) Est GFR (CKD-EPI)NonAf (>60 ml/min/1.73 sqM) Glucose (74-99) mg/dL Calcium (8.4-10.2) mg/dL Total Bilirubin (0.2-1.3) mg/dL AST (17-59) U/L ALT (4-49) U/L Alkaline Phosphatase (38-126) U/L Troponin I <0.012 (0.000-0.034) ng/mL Total Protein (6.3-8.2) g/dL Albumin (3.5-5.0) g/dL - EKG Data -: EKG Interpreted by Me EKG Comments: EKG taken at 20: 48 showing a sinus rhythm. No ST segment elevations or depressions. No T wave inversions. Ventricular rate 84, VT interval 145, QRS duration 86, QT/QTc 350/391. Disposition Clinical Impression: Syncope Disposition: HOME SELF-CARE Condition: Stable Instructions (If sedation given, give patient instructions): Syncope (ED) Additional Instructions: Follow-up with PCP. Continue stool softeners and Miralax for bowel movements.Return to the ER for any new or worsening symptoms. Is patient prescribed a controlled substance at d/c from ED?: No Referrals: Vic Appiah MD [Primary Care Provider] - 1-2 days Time of Disposition: 22:09
[2025-01-21] MEDS: HYDROmorphone 1 MG/ML 1 ML SYRINGE IVP STA (20:29)
[2025-01-21] MEDS: SODIUM CHLORIDE 0.9% 1,000 ML IV ONE (20:29)
[2025-01-21 20:46] LABS: Basophils # (A) 0.06 10*3/uL (0.00-0.10); Basophils % (A) 0.8 %; Eosinophils # (A) 0.17 10*3/uL (0.04-0.35); Eosinophils % (A) 2.2 %; HCT 28.6 % (39.6-50.0); HGB 7.6 g/dL (13.0-17.0); Lymphocytes # (A) 1.33 10*3/uL (0.90-5.00); MCH 17.4 pg (27.0-32.0); MCHC 26.6 g/dL (32.0-37.0); MCV 65.4 fL (80.0-97.0); Mean Platelet Volume 9.9 fL (9.5-12.2); Monocytes % (A) 6.4 %; Neutrophils # (A) 5.76 10*3/uL (1.80-7.70); Neutrophils % (A) 73.3 %; Platelet Count 419 10*3/uL (140-440); RBC 4.37 10*6/uL (4.40-5.60); RDW 17.7 % (11.5-14.5); WBC 7.84 10*3/uL (4.50-10.00)
[2025-01-21 20:54] LABS: ALT 21 U/L (4-49); AST 25 U/L (17-59); African American GFR (CKD) >90 (>60 ml/min/1.73 sqM); Albumin 4.1 g/dL (3.5-5.0); Alkaline Phosphatase 58 U/L (38-126); Anion Gap 11 mmol/L; Blood Urea Nitrogen 15 mg/dL (9-20); Calcium 9.1 mg/dL (8.4-10.2); Carbon Dioxide 24 mmol/L (22-30); Chloride 104 mmol/L (98-107); Glucose 122 mg/dL (74-99); Non-African American GFR(CKD) >90 (>60 ml/min/1.73 sqM); Sodium 139 mmol/L (137-145); Total Bilirubin 0.4 mg/dL (0.2-1.3); Total Protein 6.9 g/dL (6.3-8.2)
[2025-01-21 21:01] LABS: Prothrombin Time 10.9 sec (10.0-12.5)
[2025-01-21 21:16] LABS: Partial Thromboplastin Time 19.4 sec (22.0-30.0)
--- NOTE | 2025-01-21 21:21 | CT ---
EXAMINATION TYPE: CT brain cspine wo con DATE OF EXAM: 01/21/2025 8:59 PM COMPARISON: 01/08/2025 CLINICAL INDICATION: Male, 39 years old with history of fall with loc; Fall -LOC, pain TECHNIQUE: Brain: Multiple axial CT images of the brain were obtained without IV contrast. Cspine: Axial CT images from the skull base to the inferior aspect of T2 we obtained without intraven ous contrast. Coronal and sagittal reformatted images were also reviewed. . CT DLP: 1333.2 mGycm, Automated exposure control for dose reduction was used. FINDINGS: Brain: Extra-axial spaces: No abnormal extra-axial fluid collections. Ventricular system: Within normal limits Cerebral parenchyma: No acute intraparenchymal hemorrhage or mass effect. The rodarte-white junction is well differentiated. Cerebellum: Unremarkable. Mass effect: No evidence of midline shift. Intracranial vasculature: unremarkable Soft tissues: Normal. Calvarium/osseous structures: No depressed skull fracture. Paranasal sinuses and mastoid air cells: Mild scattered mucosal thickening predominantly in the left maxillary sinus. Visualized orbits: Orbital contents are intact. Cervical spine: Fracture: None. Osseous structures: Unremarkable Vertebral alignment: Within normal limits. Spinal canal/Neural Foramina: No evidence of significant spinal canal narrowing. No evidence for sign ificant neural foraminal stenosis. Neck soft tissues: Prevertebral soft tissues are within normal limits. Other: The airway is patent. The lung apices are clear. IMPRESSION: 1. No acute intracranial process. 2. No evidence of cervical spine fracture. 3. Mild mucosal thickening of the left maxillary sinus. [facility], , 01/21/2025 9:19 PM
[2025-01-21] MEDS: HYDROmorphone 0.5 MG/0.5 ML SYRINGE IVP STA (22:19)
[2025-01-21 22:29] VITALS: BP 111/70; PULSE 87; RESP 16
== END 2025-01-21 22:32 | disposition home or self-care (01) ==
LOC: EC 20:03
DX: R55 Syncope and collapse (principal); D50.9 Iron deficiency anemia, unspecified; F17.200 Nicotine dependence, unspecified, uncomplicated; Z87.19 Personal history of other diseases of the digestive system; W19.XXXA Unspecified fall, initial encounter
CPT/HCPCS: 36415; 93005; 80053; 84484; 85025; 85610; 85730; 72125; 70450; 99285; 96374; 96376; 96361; J1171 ×2